=== PATIENT | female | born 1985 | race Caucasian/White ===

== ENCOUNTER 2024-05-06 12:47 | Outpatient (OUT) | payer OTHER, SELFPAY ==
--- NOTE | 2024-05-06 12:52 | US_ITS ---
[place] [id number] Patient Name: KIRSTY MEYERS MRN: [id number] date: 1985 Sex: F Assigned Patient Location: [place] Current Patient Location: [place] Accession/Order Number: [id number] Exam Date: 05/06/2024 13:10 Report Date: 05/06/2024 14:16 At the request of: JOSÉ SINGH Procedure: US OB transvaginal EXAMINATION: US OB transvaginal HISTORY: positive test COMPARISON: No relevant comparison available. FINDINGS: Transvaginal images Espinal intrauterine gestation just Gestational sac: 3.0 cm, 7 weeks 6 days CRL: 1.52 cm, 7 weeks 6 days Yolk sac: 2.5 mm Heart rate: 161 beats minute Adjacent to the gestational sac is a 1.1 x 0.6 x 1.0 cm area of hypoechogenicity Cervix: Closed, 4.9 cm Uterus is normal, retroverted The ovaries are normal. Left corpus luteal cyst. Small amount of left periadnexal free fluid Clinical age: 8 weeks 2 days Clinical RICHA: 12/14/2024 Ultrasound age: 7 weeks 6 days Ultrasound RICHA: 12/17/2024 US/US OB transvaginal IMPRESSION: Viable espinal intrauterine gestation measuring 7 weeks 6 days 1.1 cm subchorionic hematoma Electronically authenticated by: JASS VEGA Date: 05/06/2024 14:16
== END 2024-05-06 12:48 | disposition home or self-care (01) ==
LOC: US 12:47
PROVIDERS: Family Provider Family Medicine; PCP Family Medicine; Visit Provider Midwife
DX: Z32.01 Encounter for pregnancy test, result positive (principal); Z3A.01 Less than 8 weeks gestation of pregnancy
CPT/HCPCS: 76817

== ENCOUNTER 2024-12-15 04:51 | Inpatient (IN) | payer OTHER, SELFPAY ==
--- OUTSIDE RECORDS SUMMARY | 2023-07-17 08:57 | XMS_ITS ---
Author Organization The [facility] in [place] Address [address] [place] [address] Care Team Providers Care Jewel Hole Gauger Name Role Phone Tristen Clemens MD Primary Care Provider Jarrod Tee Unavailable [phone] Medications Medication SIG (Take, Route, Frequency, Duration) Notes Start Date End Date Status Adalimumab-adaz 40 MG/0.4ML 1 pen Subcutaneous every 2 weeks for 28 days 07/17/2023 Active Encounters Encounter Location Date Provider Diagnosis [id number] [facility] [address] [place], [place] [id number] 07/17/2023 Jarrod Godinez Plan Of Treatment Medication Medication Name Sig Start Date Stop Date Notes Humira Pen 40 MG/0.8ML INJECT THE CONTEN TS OF 1 PEN UNDER THE SKIN EVERY OTHER WEEK Pt needs f/u for further rfs Adalimumab-adaz 40 MG/0.4ML 1 pen Subcutaneous every 2 weeks for 28 days 07/17/2023 Next Appt Details Provider Name:Jarrod colin, 03/29/2025 08:45:00 AM, [address], [address], [place], [address], Progress Notes * Nevin YARBROUGH DDOB:1985 (37 yo F)Acc No.[id number]:07/17/2023 Patient: Nevin Godinez :1985 A ge:37 Y S ex:Female Address:[address] [place] [address] [address], [place], [address] * Refills Stop Humira Pen Pen-injector Kit, 40 MG/0.8ML, INJECT THE CONTENTS OF 1 PEN UNDER THE SKIN EVERY OTHER WEEK Start Adalimumab-adaz Solution Auto-injector, 40 MG/0.4ML, Subcutaneous, 2 Pen Needle, 1 pen, every 2 weeks, 28 days, Refills=3 * true * Date: Generated for Dionna powell/Nely/Fionaitting on: 0 12/15/2024 04:54 AM EDT
--- OUTSIDE RECORDS SUMMARY | 2023-12-02 10:13 | XMS_ITS ---
Author Organization The [facility] in [place] Address [address] [place] [address] Care Team Providers Care Spinner Cap Frame Name Role Phone Tristen Clemens MD Primary Care Provider Jarrod Tee Unavailable [phone] REASON FOR VISIT RX REFILL Medications Medication SIG (Take, Route, Fr equency, Duration) Notes Start Date End Date Status Humira Pen 40 MG/0.8ML INJECT THE CONTEN TS OF 1 PEN UNDER THE SKIN EVERY OTHER WEEK Active Encounters Encounter Location Date Provider Diagnosis [id number] [facility] [address] [facility] [place], [place] [id number] 12/02/2023 Jarrod Godinez Plan Of Treatment Medication Medication Name Sig Start Date Stop Date Notes Humira Pen 40 MG/0.8ML INJECT THE CONTEN TS OF 1 PEN UNDER THE SKIN EVERY OTHER WEEK Next Appt Details Provider Name:Jarrod colin, 03/29/2025 08:45:00 AM, [address], [address], [place], [address], Progress Notes * Nevin YARBROUGH DDOB:1985 (38 yo F)Acc No.[id number]:12/02/2023 Patient: Ritesh Nevin VERMA :1985 A ge:38 Y S ex:Female Address:[address] [place] [address] [address], [place], [address] * Refills Refill Humira Pen Pen-injector Kit, 40 MG/0.8ML, 2 Each, INJECT THE CONTENTS OF 1 PEN UNDER THE SKIN EVERY OTHER WEEK, Refills=0 * true * Date: Generated for Dionna powell/Nely/Remy on: 0 12/15/2024 04:55 AM EDT
--- OUTSIDE RECORDS SUMMARY | 2023-12-09 05:45 | XMS_ITS ---
Author Organization The [facility] in [place] Address [address] [place] [address] Care Team Providers Care Mine Deputy Name Role Phone Tristen Clemens MD Primary Care Provider Jarrod Tee Unavailable [phone] REASON FOR VISIT Med Check, joint pain Medications Medication SIG (Take, Route, Frequency, Duration) Notes Start Date End Date Status Drospirenone-Estradiol 0.5-1 MG 1 tablet Orally Once a day Active Adalimumab-adaz 40 MG/0.4ML 1 pen Subcutaneous every 2 weeks for 28 days 07/17/2023 Not-Taking Humira Pen 40 MG/0.8ML INJECT THE CONTEN TS OF 1 PEN UNDER THE SKIN EVERY OTHER WEEK Active Flonase Allergy Relief 50 MCG/ACT 1 spray in each nostril Nasally Once a day for 30 day(s) Active Semaglutide 1.8 mg/ 0.5 mL 1.8 mg/ 0.5 mL 0.5 mL Subcutaneous Once Weekly Active Social History Tobacco Use: Social History Observation Description Date Details (start date - stop date) Never Smoker NA - NA Tobacco Use/Smoking Question Answer Notes Patient is a nonsmoker 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[employer], 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 Vital Signs Blood pressure systolic 122 mm Hg 12/09/19 24 Blood pressure diastolic 90 mm Hg 024 Heart Rate 80 /min 12/09/2023 Height 56 in 12/09/2023 Weight 179 lbs 12/09/2023 BMI 40.13 kg/m2 12/09/2023 Encounters Encounter Location Date Provider Diagnosis [id number] [facility] [address] [facility] [address] [place], [place] [id number] 12/09/2023 Jarrod Godinez Rheumatoid arthritis of multiple sites without organ or system involvement with positive rheumatoid factor M05.79 ; Flat foot [pes planus] (acquired), left foot M21.42 ; Flat foot [pes planus] (acquired), right foot M21.41 and Other snf (current) drug therapy Z79.899 Assessments Encounter Date Diagnosis (ICD Code) Assessment Notes Treatment Notes Treatment Clinical Notes Section Notes 12/09/2023 Rheumatoid arthritis of multiple sites without organ or system involvement with positive rheumatoid factor (ICD-10 - M05.79) Rheumatoid arthritis improved during did flare when she stopped breast-feeding which she is a fairly common scenario as hormone levels fluctuate. Over the last year she has been taking a rather minimal amount of Humira, it is not even clear to me whether she is having true flareups or the hip and knee problems she is having are more mechanical. I suggested if she feels she needs 1 around the time of the wedding okay to take but then see if she can get by without the medication and then we will see if she needs to be on some regular use of a biologic response modifier still. I will see her back in 6 months. 12/09/2023 Flat foot [pes planus] (acquired), left foot (ICD-10 - M21.42) Rheumatoid arthritis improved during did flare when she stopped breast-feeding which she is a fairly common scenario as hormone levels fluctuate. Over the last year she has been taking a rather minimal amount of Humira, it is not even clear to me whether she is having true flareups or the hip and knee problems she is having are more mechanical. I suggested if she feels she needs 1 around the time of the wedding okay to take but then see if she can get by without the medication and then we will see if she needs to be on some regular use of a biologic response modifier still. I will see her back in 6 months. 12/09/2023 Flat foot [pes planus] (acquired), right foot (ICD-10 - M21.41) Rheumatoid arthritis improved during did flare when she stopped breast-feeding which she is a fairly common scenario as hormone levels fluctuate. Over the last year she has been taking a rather minimal amount of Humira, it is not even clear to me whether she is having true flareups or the hip and knee problems she is having are more mechanical. I suggested if she feels she needs 1 around the time of the wedding okay to take but then see if she can get by without the medication and then we will see if she needs to be on some regular use of a biologic response modifier still. I will see her back in 6 months. 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 Over the last year she has been taking a rather minimal amount of Humira, it is not even clear to me whether she is having true flareups or the hip and knee problems she is having are more mechanical. I suggested if she feels she needs 1 around the time of the wedding okay to take but then see if she can get by without the medication and then we will see if she needs to be on some regular use of a biologic response modifier still. I will see her back in 6 months. Plan Of Treatment Next Appt Details Follow Up: 6 Months, Reason: Provider Name:Jarrod Joseph dixie, 03/29/2025 08:45:00 AM, [address], [facility], [place], [address], Progress Notes * Nevin YARBROUGH DDOB:1985 (38 yo F)Acc No.[id number]:12/09/2023 Follow Up Patient: Nevin BOWERS D Provider: Kirstin Godinez MD :1985 A ge:38 Y S ex:Female Date:12/09/2023 Address:[address] [place], [place] [id number] Pcp:Tristen Clemesn MD Check In:09:43 AM ESTCheck O ut:10:12 AM EST Subjective: * Chief Complaints: * M ed CheckJoint pain * HPI: R heumatology: Nevin returns for reevaluation. She has seropositive and CCP positive rheumatoid arthritis. I saw her by televisit 1 year a go. Patient is taking Humira every couple of months when she feels she needs it. She reports mild recurrent right knee pain when she is exercising. She notes exacerbation of left sided groin pain when sleeping on the left side. She is not entirely sure if the joints feel that much better after an injection but she did want to take 1 recently because her sister's wedding is coming up and she wanted to make sure she would not experience a flare. She has lost about 40 pounds on Qsymia. N o other peripheral joints recently acutely swollen, red, hot, or otherwise inflamed. She denies prolonged morning stiffness or significant fatigue. The patient has had no eye inflammation, pulmonary symptoms, leg ulcers, recurrent infections or other extra-articular manifestations of rheumatoid arthritis. She denies any recent medical problems. She last had lab work about a year ago for health screening and nothing was remarkable. She has been back to work currently working at a [employer]. 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 W eight loss d enies. F atigue or Weakness d enies. P oor appetite d enies. F ever or Chills d enies. N ap during the day d enies. S kin: Easy Bruising d enies. R edness d enies. R craig?denies. H marcin a dmits-less severe, takes Zantac and Zyrtec as needed. S un sensitive (sun allergy) d enies. T ightness d enies. H air loss d enies. C olor changes of hands or feet in the cold or when upset d enies. S ores/ulcerations on finger tips d enies. R craig on palms/soles d enies. E yes: Pain d enies. R edness d enies. L oss of vision?denies. D ouble or blurred vision d enies. F eels like something in eye d enies. N ose: Nosebleeds d enies. L oss of smell d enies. ? N sofi: Jaw pain with chewing d enies. S wollen glands d enies. T jerman glands d enies. H eart and Lungs: Pain in chest d enies. I rregular heartbeat d enies. S udden changes in heartbeat d enies. S hortness of breath d enies. D ifficulty in breathing at night d enies. S wollen legs or feet d enies. F requent cough d enies. C oughing of blood d enies. W heezing d enies. N ight sweats d enies. S tomach and Intestines: Nausea d enies. V omitting of blood or coffee ground material d enies. S tomach pain relieved by food or milk d enies. Y ellow jaundice?denies. I ncreasing constipation d enies. P ersistent diarrhea d enies. B lood in stools d enies. B lack stools d enies. F requent or constant heartburn d enies. M outh: Sore tongue d enies. B leeding gums d enies. S ores in mouth d enies. L oss of taste d enies. T hroat: Frequent sore throats d enies. H oarseness d enies.?Difficulty in swallowing d enies. N ervous System: Headaches d enies. D izziness d enies. F ainting d enies. M uscle spasm d enies. L oss of consciousness d enies. S ensitivity or pain of hands and/or feet d enies. M jefferson loss d enies. A clementine or legs tingle/numb d enies. T enderness of the scalp d enies. K idney/Urine/Bladder: Difficult urination d enies. P ain or burning on urination d enies. B lood in urine d enies. C loudy, smoky urine d enies. P us in urine d enies. D ischarge from penis/vagina d enies. F requent urination d enies. G etting up at night to pass urine d enies. V aginal dryness d enies. S exual difficulties d enies. M uscles/Joints/Bones: Comments a s per HPI. * Active Problem List M05.79 Rheumatoid arthritis of multiple sites without organ or system involvement with positive rheumatoid factor Modified On:11/06/2022W/U Status:confirmed * Medical History: * Surgical History: H istory of periodontal surgery History of tonsillectomy * Hospitalization/Major Diagno stic Procedure: N o Hospitalization History. * Family History: F ather: alive, ;. M other: alive, ;. 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 * Medications: T akingDrospirenone-Estradiol 0.5-1 MG Tablet 1 tablet Orally Once a day Flonase Allergy Relief(Fluticasone Propionate) 50 MCG/ACT Suspension 1 spray in each nostril Nasally Once a day Humira Pen(Adalimumab) 40 MG/0.8ML Pen-injector Kit INJECT THE CONTENTS OF 1 PEN UNDER THE SKIN EVERY OTHER WEEK Semaglutide 1.8 mg/ 0.5 mL 1.8 mg/ 0.5 mL Solution Auto-injector 0.5 mL Subcutaneous Once Weekly Taking Drospirenone-Estradiol 0.5-1 MG Tablet 1 tablet Orally Once a day Taking Flonase Allergy Relief(Fluticasone Propionate) 50 MCG/ACT Suspension 1 spray in each nostril Nasally Once a day Taking Humira Pen(Adalimumab) 40 MG/0.8ML Pen-injector Kit INJECT THE CONTENTS OF 1 PEN UNDER THE SKIN EVERY OTHER WEEK Taking Semaglutide 1.8 mg/ 0.5 mL 1.8 mg/ 0.5 mL Solution Auto-injector 0.5 mL Subcutaneous Once Weekly Not-Taking/PRNAdalimumab-adaz 40 MG/0.4ML Solution Auto-injector 1 pen Subcutaneous every 2 weeks Not-Taking/PRN Adalimumab-adaz 40 MG/0.4ML Solution Auto-injector 1 pen Subcutaneous every 2 weeks DiscontinuedQsymia(Phentermine-Topiramate) 7.5-46 MG Capsule Extended Release 24 Hour 1 capsule Orally Once a day Medication List reviewed and reconciled with the patientDiscontinued Qsymia(Phentermine-Topiramate) 7.5- 46 MG Capsule Extended Release 24 Hour 1 capsule Orally Once a day Medication List reviewed and reconciled with the patient * Allergies: n o[Allergies Verified] Objective: * Vitals: W t:179lbs, Ht: 56 in, BP:122/90mm Hg, HR:80/min, BMI:40.13Index, Ht-cm: 142.24 cm, Wt-k.19 kg. * Examination: G eneral: N o current urticaria. No scleritis. No oral lesions, lungs clear. No tophi or nodules. There is no hand synovitis or deformity. Slight hypertrophy right 3rd DIP. 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 Other peripheral joints on comprehensive joint exam demonstrate full pain free motion without pain on motion, synovitis or deformity. No current knee effusions. Mild crepitus on RT knee motion. There are no palpable effusions. Mild positive Elpidio's sign Left hip with full range of motion. There is no metatarsal squeeze tenderness. There is reasonably full pain-free cervical and lumbar spine motion for the patient's age without local tenderness. Gait is normal. Assessment: * Assessment: 1. R heumatoid arthritis of multiple sites without organ or system involvement with positive rheumatoid factor - M05.79 (Primary) 2 . F lat foot [pes planus] (acquired), left foot - M21.42 3 . F lat foot [pes planus] (acquired), right foot - M21.41 4 . O ther snf (current) drug therapy - Z79.899 Rheumatoid arthritis improve d during did flare when she stopped breast-feeding which she is a fairly common scenario as hormone levels fluctuate. Over the last year she has been taking a rather minimal amount of Humira, it is not even clear to me whether she is having true flareups or the hip and knee problems she is having are more mechanical. I suggested if she feels she needs 1 around the time of the wedding okay to take but then see if she can get by without the medication and then we will see if she needs to be on some regular use of a biologic response modifier still. I will see her back in 6 months. Plan: * Treatment: * Procedure Codes: * Preventive Medicine: Screenings/Counseling: B [place] ACTION PLAN Above Normal BMI Follow-up D ietary management education, guidance, and counseling * Disposition & Communication: Romain alas Attestation: The documentation for this encounter was entered by Ansley Marx acting as scribe for Jarrod Godinez M.D. ([facility]). The documentation recorded by the scribe accurately reflects the service I personally performed and the decisions made by me. I have reviewed and confirmed the accuracy of the documentation. By electronically signing this patient's record, I attest and assume full responsibility of all entries made into the electronic medical record by Ansley Marx. * Follow Up: 6 Months * * Sign off status: Completed Visit Status: C HK (Check Out) true * Provider: Kirstin Godinez MD Date: 0 12/09/2023 Generated for Ruperti sherry/Nely/eTransmitting on: 0 12/15/2024 04:55 AM EDT History and Physical Notes * HPI (History of Present Illness) Category Sub-Category Detail Notes Category Not es Rheumatology Screenings JIMBO Disability Index Score:: 0 PAS Score:: 0 RAPID 3 Score:: 0.3 WPI Score:: 0 SS Score:: 0 BASDAI Score:: 0 SLEDAI Score:: 0 Examination Category Sub-Category Detail Notes Category Not es General No current urti caria. No scleritis. No oral lesions, lungs clear. No tophi or nodules. There is no hand synovitis or deformity. Slight hypertrophy right 3rd DIP. 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 Other peripheral joints on comprehensive joint exam demonstrate full pain free motion without pain on motion, synovitis or deformity. No current knee effusions. Mild crepitus on RT knee motion. There are no palpable effusions. Mild positive Elpidio's sign Left hip with full range of motion. There is no metatarsal squeeze tenderness. There is reasonably full pain-free cervical and lumbar spine motion for the patient's age without local tenderness. Gait is normal
--- OUTSIDE RECORDS SUMMARY | 2024-02-17 06:30 | XMS_ITS | Continuity of Care Document ---
Author Organization [facility] Address [address] [facility] [place] [address] Phone Care Team Providers Care Protection Officer Name Role Phone Tony VARGAS, Afser Unavailable Unavailable Allergies, Adverse Reactions, Alerts Substance Reaction Status Criticality No Known Allergies Active No Inform ation Medications Medication Instructions Dosage Effective Dates (start - stop) Status Comments Sprintec (28) 0.25 mg-35 mcg tablet take 1 tablet by oral route every day 1.00 tablet - Active albuterol sulfate 0.63 mg/3 mL solution for nebulization - Active Flonase Allergy Relief 50 mcg/actuation nasal spray,suspension spray 1 - 2 spray by intranasal route every day in each nostril as needed 50-100 MCG - Active Humira 40 mg/0.8 mL subcutaneous syringe kit inject 0.8 milliliter by subcutaneous route 2 times every week 40 MG - Active Procedures Procedure Date OFFICE/OUTPATIENT VISIT, NEW OFFICE/OUTPATIENT VISIT, EST OFFICE/OUTPATIENT VISIT, NEW TB INTRADERMAL TEST TB INTRADERMAL TEST TB INTRADERMAL TEST IMMUNIZATION ADMIN TDAP VACCINE >7 IM PREV VISIT, NEW, AGE 18-39 REMOVE DRUG IMPLANT DEVICE INSERT DRUG IMPLANT DEVICE URINE TEST NEXPLANON IMPLANT SYSTEM OFFICE/OUTPATIENT VISIT, [facility] Advance Directives Directive Yes / No Effective Date File Name No Information Encounters Encounter Description Practice Location Reason(s) For Visit Diagnoses Date Provider Providers Copied on Encounter OFFICE/OUTPA TIENT VISIT, [facility] [employer] [facility], [address] [place] [address] [address], [place], [place], [id number] , [place] tel:[phone] [facility] Ear pain (chief complaint) Otalgia, left earPerforation of left tympanic membraneOther abnormal auditory perceptions, bilateral Feb- 4 Tony Morales. [address], [place], [place], [id number], [place]. tel:[phone] Referring Provider: Andrew Jimenez MD, [address], [place], [address] . tel:[phone] OFFICE/OUTPA TIENT VISIT, [facility] [employer] [facility], [address] [place] [address] [address], [place], [place], [id number] , [place] tel:[phone] [facility] Follow Up of ear pain (chief complaint) Left acute suppurative otitis mediaConductive hearing loss of left ear with unrestricted hearing of right earOtalgia, left earOther abnormal auditory perceptions, left earAllergic rhinitis, unspecified seasonality, unspecified trigger 1 Bernardino Menchaca. [address], [place], [address], [place]. tel:[phone] Referring Provider: Nikolai Lebron MD, [address], [place], [address]. tel:[phone] OFFICE/OUTPA TIENT VISIT, [employer] [place] [employer] [facility], [address] [place] [address] [address], [place], [place], [id number] , [place] [phone] [facility] Ear pain (chief complaint) Left acute suppurative otitis mediaOtalgia, left earConductive hearing loss of left ear with unrestricted hearing of right earOther abnormal auditory perceptions, left earDeviated nasal septumAllergic rhinitis, unspecified seasonality, unspecified triggerNasal congestion 1 Bernardino Menchaca. [address] [facility] [address], [place], [address], [place]. tel:[phone] Referring Provider: Nikolai Lebron MD, [address] [facility] [address], [place], [address]. tel:[phone] [facility], [address] [place] [address] [address], [place], [place], [id number] , [place] tel: [phone] [facility] PPD Placement (chief complaint) Encounter for screening for respiratory tuberculosis 0 [facility], [address] [place] [address] [address], [place], [place], [id number] , [place] tel: [phone] [facility] tuberculin skin test (chief complaint) Encounter for screening for respiratory tuberculosis 9 [facility], [address] [place] [address] [address], [place], [place], [id number] , [place] tel: [phone] [facility] PPD #1 (chief complaint) Encounter for screening for respiratory tuberculosis 9 [facility], [address] [place] [address] [address], [place], [place], [id number] , [place] tel: [phone] [facility] Chronic urticaria 8 Asuncion Merchant. [address] [place] [address], [place], [place], [id number], [place]. [phone] PREV VISIT, NEW, AGE 18-39 [facility], [address] [place] [address] [address], [place], [place], [address] , [place] tel: [phone] [facility] establish care (chief complaint)p reventive exam (chief complaint)r heumatoid arthritis (chief complaint)h marcin (chief complaint) Encounter for general adult medical examination with abnormal findingsHivesRh eumatoid arthritis involving multiple sites, unspecified rheumatoid factor presenceSurveil scott for control, oral contraceptivesE ncounter to establish care with new doctor 8 Asuncion Merchant. [address] [facility] [address], [place], [place], [id number], [place]. [phone] Referring Provider: Mayur Roland APRN [employer]ENSATOR[employer], [address], [place], [address] . tel:[phone] [facility], [address], [place], [place], [address] , [place] tel:[phone] [facility] No Information [address] Sar[address], [place], [place], [address], [place]. [phone] Referring Provider: Meeta Gong, [address], [place], [address] . tel:[phone] [facility], [address] [facility] [address], [place], [place], [address] , [place] tel:[phone] [facility] No Information [address] Sar[address], [place], [place], [address], [place]. [phone] Referring Provider: Meeta Gong, [address], [place], [address] . tel:[phone] OFFICE/OUTPA TIENT VISIT, [facility], [address] [facility] [address], [place], [place], [address] , [place] tel:[phone] [facility] No Information [address] Sar[address], [place], [place], [id number], [place]. [phone] Referring Provider: Meeta Gong, [address], [place], [address] . tel:[phone] Family History Family Member Type Diagnosis Age At Onset Maternal grandmother Problem (finding) Heart issues Paternal grandmother Problem (finding) breast cancer Mother Problem (finding) Colitis Mother Problem (finding) Rheumatoid arthritis Mother Problem (finding) hypertension Maternal grandfather Problem (finding) Diabetes mellit us Immunizations Vaccine Date Status Comments Tdap (Adacel) administered Note: Patient tolerated well. ; Source: New Immunization Record Payers Payer name Insurance type Covered constitution party ID Mary quinteros(s) [facility] CI [id number] [employer] [id number] Social History Type Description Quantity Date Captured Comments Alcohol Use Details wine Caffeine Use Details coffee Tobacco Use Status Current non-smoker Smoking Status Never smoker Sex Female Vital Signs Date / Time: Height Weight BMI Pulse Rate Blood Pressure Temperature Respiratory Rate Body Surface Area Head Circumference Head Circ. Percentile Wt./Paramjit. Percentile BMI percentile Pulse Ox Inhaled Ox 10:50 AM 66.00 in 92.986 kg (205.00 lbs) 33.0 9 kg/m eter (2) 81 /min 128/91 mm[Hg] Chief Complaint And Reason For Visit From encounter dated 02/17/2024 10:30'. Ear pain (chief complaint). Description: Onset: 3 months ago. The patient states the ear pain is inthe left ear. Pertinent negatives include bleeding from ear(s), drainage (clear), fever and ringingin ears. Reason For Referral Reason For Referral No Information Plan Of Treatment Date Type Action Status Goal DEXA scan. Due on due Goal BRIDGE RIGGER/Breast exam. Due on due Goal Influenza vaccin e. Due on due Goal HPV, high+low-ri sk. Due on due Goal Pap/HPV testing. Due on due Goal HPV. Due on due Goal Glucose. Due on due Goal Diabetes Screeni ng. Due on due Goal Cytology report of Cervical and vaginal smear or scraping Cyto stain. Due on due Goal Hepatitis C scre ening. Due on due Goal URINALYSIS NONAU TO W/O SCOPE. Due on due Goal Depression scree luis manuel. Due on due Goal Unhealthy drug u se screening. Due on due Goal DEXA scan. Due on due Goal BRIDGE RIGGER/Breast exam. Due on due Goal Influenza vaccin e. Due on due Goal Diabetes Screeni ng. Due on due Goal Cytology report of Cervical and vaginal smear or scraping Cyto stain. Due on due Goal HPV, high+low-ri sk. Due on due Goal Pap/HPV testing. Due on due Goal Glucose. Due on due Goal HPV. Due on due Goal URINALYSIS NONAU TO W/O SCOPE. Due on due Goal Depression scree luis manuel. Due on due Goal Glucose. Due on due Goal Pap/HPV testing. Due on due Goal HPV, high+low-ri sk. Due on due Goal HPV. Due on due Goal Depression scree luis manuel. Due on due Goal URINALYSIS NONAU TO W/O SCOPE. Due on due Goal Cytology report of Cervical and vaginal smear or scraping Cyto stain. Due on due Goal Diabetes Screeni ng. Due on due Goal Influenza vaccin e. Due on due Goal BRIDGE RIGGER/Breast exam. Due on due Goal DEXA scan. Due on due Goal BRIDGE RIGGER/Breast exam. Due on due Goal Influenza vaccin e. Due on due Goal Diabetes Screeni ng. Due on due Goal HPV, high+low-ri sk. Due on due Goal Cytology report of Cervical and vaginal smear or scraping Cyto stain. Due on due Goal Pap/HPV testing. Due on due Goal Glucose. Due on due Goal URINALYSIS NONAU TO W/O SCOPE. Due on due Goal Depression scree luis manuel. Due on due Goal EKG. Due on due Goal BRIDGE RIGGER/Breast exam. Due on due Goal Influenza vaccin e. Due on due Goal HPV, high+low-ri sk. Due on due Goal Cytology report of Cervical and vaginal smear or scraping Cyto stain. Due on due Goal Glucose. Due on due Goal Pap/HPV testing. Due on due Goal URINALYSIS NONAU TO W/O SCOPE. Due on due Goal Depression scree luis manuel. Due on due Goal EKG. Due on due Goal BRIDGE RIGGER/Breast exam. Due on due Goal Influenza vaccin e. Due on due Goal Pap/HPV testing. Due on due Goal Glucose. Due on due Goal Cytology report of Cervical and vaginal smear or scraping Cyto stain. Due on due Goal HPV, high+low-ri sk. Due on due Goal URINALYSIS NONAU TO W/O SCOPE. Due on due Goal Depression scree luis manuel. Due on due Goal EKG. Due on due Goal BRIDGE RIGGER/Breast exam. Due on due Goal HPV, high+low-ri sk. Due on due Goal Cytology report of Cervical and vaginal smear or scraping Cyto stain. Due on due Goal Glucose. Due on due Goal Pap/HPV testing. Due on due Goal URINALYSIS NONAU TO W/O SCOPE. Due on due Goal Depression scree luis manuel. Due on due Goal Influenza vaccin e. Due on due Goal Depression scree luis manuel. Due on due Goal URINALYSIS NONAU TO W/O SCOPE. Due on due Goal Pap/HPV testing. Due on due Goal Glucose. Due on due Goal Cytology report of Cervical and vaginal smear or scraping Cyto stain. Due on due Goal HPV, high+low-ri sk. Due on due Goal Tdap. Due on due Goal Influenza vaccin e. Due on due Goal BRIDGE RIGGER/Breast exam. Due on due Goal EKG. Due on due Referral Ordered: Jimmie Loza -Allergy and Immunology (related to Chronic urticaria) ordered Referral Referred To: Jimmie Loza [address] [place], [phone] Ordered: Referrals: Allergy and Immunology. Jimmie Loza. Evaluate and treat ordered Referral Ordered: Ronna Ray -Allergy and Immunology (related to Hives) ordered Referral Ordered: Ronna Ray -Allergy and Immunology (related to Hives) ordered Referral Referred To: Ronna Ray [address] [facility] [address] [place], [phone] Ordered: Referrals: Allergy and Immunology. Ronna Ray. Evaluate and treat ordered Referral Referred To: Ronna Ray [address] [facility] [address] [place], [phone] Ordered: Referrals: Allergy and Immunology. Ronna Ray. Consult ordered Future Order: Radiology Order Au diogram (AUDIO), Ordered on: Ordered Future Order: Radiology Order Ty mpanogram (TYM), Ordered on: Ordered History Of Present Illness Encounter Date Complaint History Of Prese nt Illness Ear pain Onset: 3 months ago. The patient states the ear pain is in the left ear. Pertinent negatives include bleeding from ear(s), drainage (clear), fever and ringing in ears. Follow Up of ear pain Follow Up of ear pain (comments) Comments: Signs/symptoms of left acute suppurative otitis have resolved with time, left ear water avoidance, continuation Flonase, initiation Claritin, Ciprodex, Cleocin. Mrs. Yarbrough denies eustachian tube dysfunction symptoms. Past therapy included Augmentin, Levaquin. She describes disease onset following peroxide/baby shampoo irrigations for impacted hair follicle. She also describes subsequent development upper respiratory tract type infection. She denies otitis history as an adult. She does admit to bilateral ventilatory ear tube placement in childhood. Medical history is significant for inhalant allergies requiring occasional Claritin, daily Flonase. She is without new complaints and appeared pleased with her progress. Ear pain (comments) Comments: 34 -year-old presents with a 16 day history of left otalgia, otorrhea, decreased hearing. Mrs. Yarbrough describes disease onset following peroxide/baby shampoo irrigation for impacted hair follicle. She denies history of otitis as an adult. She does admit to bilateral ventilatory ear tube placement in childhood. Disease has persisted despite Augmentin, Levaquin. She also describes recent onset/5 days upper respiratory track type infection. She does admit to inhalant allergies requiring occasional Claritin, daily Flonase. She denies topical therapy. Ear pain PPD Placement Pt is here for P PD placement. Temperature WNL. See dosing and administration for details. tuberculin skin test Here for 2n d TB skin testing. Patient states they feel well today temperature within normal range. Patient is aware that they will have to return within 48 hours for reading. Patient denies any exposure to any at risk population or travel to any at risk countries. See details for dosing and administration. PPD #1 Here for TB skin testing. Patient states they feel well today temperature within normal range. Patient is aware that they will have to return within 48 hours for a reading. Patient denies any exposure to any at risk population or travel to at risk countries. See details for dosing and administration. establish care Nevin is a 31 ye ar old female who is new to our office and is here to establish care. She is a new employee to [employer] and is in need for her employee wellness as well as her women's exam. She is and has no children. preventive exam Currently pregna nt: no. Patient is not contemplating . The patient states she uses oral contraceptive for control. Last LMP was 05/18/2017. Her menses is regular with normal flow with a frequency of every 28 days. Negative for dysmenorrhea and menorrhagia. Negative for: breast discharge, breast lump(s) and breast pain. Positive for: breast self exam. Additional information: This is a well woman exam with PAP. The patient has history of an abnormal PAP several years ago but has had normal PAPs since then.. hives Location is arm and thigh. The problem is with no change. Relieving factors include antihistamines. Associated factors include urticaria. Pertinent negatives include diarrhea, fatigue, headache and vomiting. Comments: Pt has chronic hives. She has been to dermatology and they could not figure out cause. She currently takes Zantac and Zyrtec and this keep hives under decent control.. hives (comments) Pt states she g ets hives on arms and thighs. Hives seem worse in the morning when she wakes up. She was told by dermatology she would need referral to project management analyst for allergy testing rheumatoid arthritis She is expe riencing joint swelling. Pertinent negatives include abdominal pain, fatigue and headache. Additional information: Pt was diagnosed with RA 3-4 years ago[address] She sees Dr. Godinez every 4-6 months. She is currently on Humira and this is working well for her. She will get pain in her hands and knees. preventive exam (comments) . LMP was 05-18-2017 and she states she has regular every month. Her last PAP was a couple years ago. She did have abnormal PAP years ago but last couple have been normal. She is sexually active with her . She denies any concerns for STIs, any abnormal bleeding or discharge. She is on oral BCP for past 8 months and she is doing well on it. Pt states she has recent blood work done for wellness at hospital and she will send here. establish care (comments) Pt has history of RA and chronic hives. She denies any history of HTN, asthma, DM , or cancer. She does not smoke, drinks occasionally, and denies illegal drug use. 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 She is UTD on eye and dental exam. She is UTD on immunizations except for Tetanus shot and she will like to have this today. Functional Status Date Functional Assessmen t No Information Instructions Date Instruction Additional Infor evaristo Avoid self instrumen tation auditory canals.Water avoidance is no longer required in regards to the left ear.Hearing protection when exposed to any noise equal to or louder than a standard office equipment mechanic. Related to Allergic rhinitis, unspecified seasonality, unspecified trigger Avoid self instrumen tation auditory canals.Hearing protection when exposed to any noise equal to or louder than a standard office equipment mechanic. Contact the office with any GI concerns thought related to Cleocin use. Related to Deviated nasal septum Pt to continue Zyrte c and Zantac, refill sent in. Will refer pt to project management analyst for evaluation. Related to Hives Pt to continue follo wing up with Dr. Godinez. Related to Rheumatoid arthritis involving multiple sites, unspecified rheumatoid factor presence Pt to continue on cu rrent oral BCP, she does not need refill. Related to Surveillance for control, oral contraceptives PAP obtained and gerald l treat based on results. Pt will have blood work sent to in to review. She will follow up in one year or sooner if needed. Related to Encounter for general adult medical examination with abnormal findings Assessments Type Assessment Date assessment Otalgia, left ear assessment Perforation of left tympanic mem brane assessment Other abnormal auditory percepti ons, bilateral Mental Status Date Cognitive Assessment Orientation - [place] ed to time, place, person, situation. Patient Care Teams Name Effective Dates (start - stop) Status Members No Information
--- OUTSIDE RECORDS SUMMARY | 2024-02-18 11:54 | XMS_ITS ---
Author Organization [facility] [place] Address [address] [place] [address] Care Team Providers [place] Records Management Officer Name Role Phone Tristen Clemens MD Primary Care Provider Jarrod Tee Unavailable [phone] REASON FOR VISIT Letter for terminal carman disability eligibility Encounters Encounter Location Date Provider Diagnosis [id number] [facility] [address] [place], [place] [id number] 02/18/2024 Jarrod Godinez Plan Of Treatment Next Appt Details Provider Name:Jarrod colin, 03/29/2025 08:45:00 AM, [address], [facility], [place], [address], Progress Notes * Nevin YARBROUGH DDOB:1985 (38 yo F)Acc No.[id number]:02/18/2024 Patient: Nevin BOWERS :1985 A ge:38 Y S ex:Female Address:[address] [place] [address] [address], [place], [address] * true * Date: Generated for Printi ng/Faxing/eTransmitting on: 0 12/15/2024 04:55 AM EDT
--- OUTSIDE RECORDS SUMMARY | 2024-06-22 05:45 | XMS_ITS ---
Author Organization [facility] in [place] Address [address] [place] [address] Care Team Providers Care Rotary Soil Stabilizer Name Role Phone Tristen Clemens MD Primary Care Provider Jarrod Tee Unavailable [phone] REASON FOR VISIT 6 month f/u, joint pain Medications Medication SIG (Take, Route, Frequency, Duration) Notes Start Date End Date Status Adalimumab-adaz 40 MG/0.4ML 1 pen Subcutaneous every 2 weeks for 28 days 07/17/2023 Active Flonase Allergy Relief 50 MCG/ACT 1 spray in each nostril Nasally Once a day for 30 day(s) Active Humira Pen 40 MG/0.8ML INJECT THE CONTEN TS OF 1 PEN UNDER THE SKIN EVERY OTHER WEEK Active Social History Tobacco Use: Social History Observation Description Date Details (start date - stop date) Never Smoker NA - NA Tobacco Use/Smoking Question Answer Notes Patient is a nonsmoker 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[employer], 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 Vital Signs Blood pressure systolic 122 mm Hg 06/23/19 25 Blood pressure diastolic 92 mm Hg 025 Heart Rate 90 /min 06/22/2024 Height 56 in 06/22/2024 Weight 209 lbs 06/22/2024 BMI 46.85 kg/m2 06/22/2024 Encounters Encounter Location Date Provider Diagnosis [facility] Rheumatology [address] [place] [address] 06/22/2024 Jarrod Godinez Rheumatoid arthritis of multiple sites without organ or system involvement with positive rheumatoid factor M05.79 ; Flat foot [pes planus] (acquired), left foot M21.42 ; Flat foot [pes planus] (acquired), right foot M21.41 and Other roasterman (current) drug therapy Z79.899 Assessments Encounter Date Diagnosis (ICD Code) Assessment Notes Treatment Notes Treatment Clinical Notes Section Notes 06/22/2024 Rheumatoid arthritis of multiple sites without organ or system involvement with positive rheumatoid factor (ICD-10 - M05.79) Rheumatoid arthritis which has been minimally symptomatic for the past few years and improved during previously is a little more symptomatic because of enforced inactivity but is back to taking a rather minimal amount of Humira which does seem to be helping. Under the circumstances I think it is fine to continue to do this. She did have some screening labs by her energy manager which were apparently unremarkable. So I will just observe on the current treatment and plan to see her back in about 9 months after the baby is born unless necessary sooner. 06/22/2024 Flat foot [pes planus] (acquired), left foot (ICD-10 - M21.42) Rheumatoid arthritis which has been minimally symptomatic for the past few years and improved during previously is a little more symptomatic because of enforced inactivity but is back to taking a rather minimal amount of Humira which does seem to be helping. Under the circumstances I think it is fine to continue to do this. She did have some screening labs by her energy manager which were apparently unremarkable. So I will just observe on the current treatment and plan to see her back in about 9 months after the baby is born unless necessary sooner. 06/22/2024 Flat foot [pes planus] (acquired), right foot (ICD-10 - M21.41) Rheumatoid arthritis which has been minimally symptomatic for the past few years and improved during previously is a little more symptomatic because of enforced inactivity but is back to taking a rather minimal amount of Humira which does seem to be helping. Under the circumstances I think it is fine to continue to do this. She did have some screening labs by her energy manager which were apparently unremarkable. So I will just observe on the current treatment and plan to see her back in about 9 months after the baby is born unless necessary sooner. 06/22/2024 Other roasterman (current) drug therapy (ICD-10 - Z79.899) Rheumatoid arthritis which has been minimally symptomatic for the past few years and improved during previously is a little more symptomatic because of enforced inactivity but is back to taking a rather minimal amount of Humira which does seem to be helping. Under the circumstances I think it is fine to continue to do this. She did have some screening labs by her energy manager which were apparently unremarkable. So I will just observe on the current treatment and plan to see her back in about 9 months after the baby is born unless necessary sooner. Plan Of Treatment Medication Medication Name Sig Start Date Stop Date Notes Adalimumab-adaz 40 MG/0.4ML 1 pen Subcut aneous every 2 weeks for 28 days 07/17/2023 Next Appt Details Follow Up: 9 Months, last la bs from [facility], Reason: Provider Name:Johnjihan Mcgrawann colin, 03/29/2025 08:45:00 AM, [address], [address], [place], [address], Progress Notes * Nevin YARBROUGH DDOB:1985 (38 yo F)Acc No.[id number]:06/22/2024 Follow Up Patient: Ritesh VERMA Nevin Rain Provider: Kirstin Godinez MD :1985 A ge:38 Y S ex:Female Date:06/22/2024 Address:[address] [place] [address] Pcp:Tristen Clemens MD Check In:09:33 AM ESTCheck O ut:10:11 AM EST Subjective: * Chief Complaints: * 6 month f/uJoint pain * HPI: R heumatology: Nevin returns for reevaluation. She has seropositive and CCP positive rheumatoid arthritis. I saw her last six months ago. She is currently 15 weeks . She reports having gone about 3 months without needing a Humira dose, but has since taken one recently due to joint pain. She attributes her joint pain to her lack of exercise. She was directed to stop exercising due to a hematoma adjacent to the amniotic sac found on her last ultrasound. Patient is stable otherwise and has no significant complaints today. No peripheral joints recently acutely swollen, red, hot, or otherwise inflamed. She denies prolonged morning stiffness or significant fatigue. The patient has had no eye inflammation, pulmonary symptoms, leg ulcers, recurrent infections or other extra-articular manifestations of rheumatoid arthritis. She has been back to work currently working at a [employer]. 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 * Medications: T akingFlonase Allergy Relief(Fluticasone Propionate) 50 MCG/ACT Suspension 1 spray in each nostril Nasally Once a day Humira Pen(Adalimumab) 40 MG/0.8ML Pen-injector Kit INJECT THE CONTENTS OF 1 PEN UNDER THE SKIN EVERY OTHER WEEK Taking Flonase Allergy Relief(Fluticasone Propionate) 50 MCG/ACT Suspension 1 spray in each nostril Nasally Once a day Taking Humira Pen(Adalimumab) 40 MG/0.8ML Pen-injector Kit INJECT THE CONTENTS OF 1 PEN UNDER THE SKIN EVERY OTHER WEEK Not-Taking/PRNAdalimumab-adaz 40 MG/0.4ML Solution Auto-injector 1 pen Subcutaneous every 2 weeks Not-Taking/PRN Adalimumab-adaz 40 MG/0.4ML Solution Auto-injector 1 pen Subcutaneous every 2 weeks DiscontinuedDrospirenone-Estradiol 0.5-1 MG Tablet 1 tablet Orally Once a day Semaglutide 1.8 mg/ 0.5 mL 1.8 mg/ 0.5 mL Solution Auto-injector 0.5 mL Subcutaneous Once Weekly Discontinued Drospirenone-Estradiol 0.5-1 MG Tablet 1 tablet Orally Once a day Discontinued Semaglutide 1.8 mg/ 0.5 mL 1.8 mg/ 0.5 mL Solution Auto- injector 0.5 mL Subcutaneous Once Weekly * Allergies: n o[Allergies Verified] Objective: * Vitals: W t:209lbs, Ht: 56 in, BP:122/92mm Hg, HR:90/min, BMI:46.85Index, Ht-cm: 142.24 cm, Wt-k.8 kg. * Examination: G eneral: N o current urticaria. No scleritis. No oral lesions, lungs clear. No tophi or nodules. There is no hand synovitis or deformity. Slight hypertrophy right 3rd DIP. Fists full, energy manager and pinch strength good. Other peripheral joints on comprehensive joint exam demonstrate full pain free motion without pain on motion, synovitis or deformity. No current knee effusions. Mild crepitus on RT knee motion. There are no palpable effusions. There is no metatarsal squeeze tenderness. There is reasonably full pain-free cervical spine motion for the patient's age without local tenderness. Gait is normal. Assessment: * Assessment: 1. R heumatoid arthritis of multiple sites without organ or system involvement with positive rheumatoid factor - M05.79 (Primary) 2 . F lat foot [pes planus] (acquired), left foot - M21.42 3 . F lat foot [pes planus] (acquired), right foot - M21.41 & #160; 4 . O ther assisted (current) drug therapy - Z79.899 Rheumatoid arthritis which h as been minimally symptomatic for the past few years and improved during previously is a little more symptomatic because of enforced inactivity but is back to taking a rather minimal amount of Humira which does seem to be helping. Under the circumstances I think it is fine to continue to do this. She did have some screening labs by her energy manager which were apparently unremarkable. So I will just observe on the current treatment and plan to see her back in about 9 months after the baby is born unless necessary sooner. Plan: * Treatment: * Procedure Codes: * Preventive Medicine: Screenings/Counseling: B DE ACTION PLAN Above Normal BMI Follow-up D ietary management education, guidance, and counseling * Disposition & Communication: Romain alas Attestation: The documentation for this encounter was entered by Jaylin Ceballos acting as scribe for Jarrod Godinez MD., ([facility]). The documentation recorded by the scribe accurately reflects the service I personally performed and the decisions made by me. I have reviewed and confirmed the accuracy of the documentation. By electronically signing this patient's record, I attest and assume full responsibility of all entries made into the electronic medical record by Jaylin Ceballos. * Follow Up: 9 Months, last labs from [facility] * * Sign off status: Completed Visit Status: C HK (Check Out) true * Provider: Kirstin Godinez MD Date: 0 06/22/2024 Generated for Dionna powell/Nely/Fionaitting on: 0 12/15/2024 04:54 AM EDT History and Physical Notes * [...] Slight hypertrophy right 3rd DIP. Fists full, energy manager and pinch strength good. Other peripheral joints on comprehensive joint exam demonstrate full pain free motion without pain on motion, synovitis or deformity. No current knee effusions. Mild crepitus on RT knee motion. There are no palpable effusions. There is no metatarsal squeeze tenderness. There is reasonably full pain-free cervical spine motion for the patient's age without local tenderness. Gait is normal
--- OUTSIDE RECORDS SUMMARY | 2024-12-01 11:00 | XMS_ITS | Encounter Summary ---
Author Organization [facility] Address [address] [place] [address] Care Team Providers Care Interior Design Assistant Name Role Phone Unavailable Primary Care Provider Unavailabl e Encounter Details Date Type Department Care Team (Latest Contact Info) Description 12/01/2024 11:00 AM EDT [facility] [address] [place] [address] Twyla Amos CNM [address] [place] [address] Rheumatoid arthritis flare (HCC) (Primary Dx); Encounter for supervision of other normal , third trimester ([facility]); NST (non-stress test) reactive ([facility]); Multigravida of advanced maternal age in third trimester ([facility]) Social History Tobacco Use Types Packs/Day Years Used Date Smoking Tobacco: Never Smokeless Tobacco: Never Alcohol Use Standard Drinks/Week Comments Not Currently 0 (1 standard drink = 0.6 oz pur e alcohol) Estimated Date of Delivery Comme nts Yes 12/14/2024 Based on last me nstrual period of 03/09/2024 (Exact Date) Sex and Gender Information Value Date Recorded Sex Assigned at Female 04/30/2024 7:07 AM EST Legal Sex Female 7:22 PM EDT Gender Identity Female 04/30/2024 7:07 AM EST Sexual Orientation Not on file documented as of this encounter Last Filed Vital Signs Vital Sign Reading Time Taken Comments Blood Pressure 122/80 12/01/2024 10:59 AM EDT Pulse - - Temperature - - Respiratory Rate - - Oxygen Saturation - - Inhaled Oxygen Concentration - - Weight 108 kg (237 lb) 12/01/2024 10:59 AM EDT Height - - Body Mass Index 38.25 07/23/2022 12:00 PM EDT documented in this encounter Progress Notes * Twyla Amos CNM - 12/01/2024 11:00 AM EDT Subjective No chief complaint on file. Nevin Yarbrough is a 39 y.o. at 38w1d with a working estimated date of delivery of 12/14/2024, by Last Menstrual Period who presents for a routine visit. She denies vaginal bleeding, leakage of fluid, decreased movements, or contractions. OB History Para Term AB Living 2 1 1 1 SAB IAB Ectopic Multiple Live Births 1 # Outcome Date GA Lbr Paramjit/2nd Weight Sex Type Anes PTL Lv 2 Current 1 Term 12/06/21 39w6d 01:33 / 00:51 7 lb 13.5 oz F Vag-Spont EPI N MADIE Her is complicated by: AMA, anxiety, rheumatoid arthritis Objective Physical Exam Weight: 237 lb Expected Total Weight Gain: 11 lb-19 lb Pregravid BMI: 32.13 BP: 122/80 Urine protein-negative Urine glucose-negative Assessment/Plan Diagnoses and all orders for this visit: Rheumatoid arthritis flare (HCC) Encounter for supervision of other normal , third trimester ([facility]) NST (non-stress test) reactive ([facility]) Multigravida of advanced maternal age in third trimester ([facility]) Reactive NST today Discussed with patient EIOL due to AMA and patient does not want to be induced. We discussed risks,benefits, and patient does not want to be induced Unless I have to be for a medical reason Continue vitamin. Labs reviewed GBS negative Expected mode of delivery Follow up in 1 week for a routine visit. documented in this encounter Plan of Treatment Not on file documented as of this encounter Goals Goal Patient Goal Type Associated Problems Recent Progress Patient-Stated? Author Reminders Care Plan OB Reminders No Open Scheduling, Background documented as of this encounter Visit Diagnoses Diagnosis Rheumatoid arthritis flare (HCC)- Primary Encounter for supervision of other normal , third trimester ([facility]) NST (non-stress test) reactive ([facility]) state, incidental Multigravida of advanced maternal age in third trimester ([facility]) documented in this encounter Additional Health Concerns Active Problems Noted Date Diagnosed Date OB Reminders 06/25/2024 documented as of this encounter
--- OUTSIDE RECORDS SUMMARY | 2024-12-02 11:00 | XMS_ITS | Encounter Summary ---
Author Organization [facility] Address [address] [place] [address] Care Team Providers Care Adobe Cq Developer Name Role Phone Unavailable Primary Care Provider Unavailabl e Encounter Details Date Type Department Care Team (Latest Contact Info) Description 12/02/2024 11:00 AM EDT [facility] [address] [place] [phone] Multigravida of advanced maternal age in third trimester ([facility]) Social History Tobacco Use Types Packs/Day Years [...] on file documented as of this encounter Plan of Treatment Not on file documented as of this encounter Goals Goal Patient Goal Type Associated Problems Recent Progress Patient-Stated? Author Reminders Care Plan OB Reminders No Open Scheduling, Background documented as of this encounter Procedures Procedure Name Priority Date/Time Associated Diagnosis Comments US OB FOLLOW UP TRANSABDOMINAL APPROACH Routine 12/02/2024 11:37 AM EDT Multigravida of advanced maternal age in third trimester ([facility]) documented in this encounter Results * US OB follow up transabdominal approach (12/02/2024 11:37 AM EDT) Anatomical Region Laterality Modality Body Ultrasound 12/03/2024 12:0 2 PM EDT Impressions 12/03/2024 1:02 PM EDT 1. Single, live intrauterine , current sonographic age of 37 weeks and 6 days, with an estimated date of delivery of December 17, 2024. 2. Comparison made with prior examination of November 04, 2024 delivery at that time was December 14, 2024 and prior weight 44%. * Estimated Weight (g) by Percentile is based upon an accurate estimated age based on last menstrual period. TRANSCRIBED BY: ELECTRONICALLY SIGNED BY: Edwardo Flores MD Narrative 12/03/2024 1:02 PM EDT FINDINGS: A single, live intrauterine is present with normal cardiac rate of 163 beats per minute. Normal activity and amniotic fluid volume. Amniotic fluid index is 10.0 cm. Morphology is grossly normal. The cervix is long and closed, 5.1cm. The placenta is anterior, not associated with the cervical os. The current sonographic age is 37 weeks and 6 days, based on the following measurements: BPD 9.2 cm (37 weeks, 4 days) Head Circumference 33.1cm (37 weeks,5 days) Abdominal Circumference 34.6cm ( 38 weeks, 4 days) Femur Length 7.4cm (37 weeks, 5 days) Presentation Cephalic Placenta Anterior, Grade 1. Weight (g) by Percentile 59.9 % * These measurements result in an estimated date of delivery of December 17, 2024 The current estimated weight is 3400 grams ( 7 pound, 8 ounces). Procedure Note Edwardo Flores MD - 12/03/2024 FINDINGS: A single, live intrauterine is present with normal cardiacrate of 163 beats per minute. Normal activity and amniotic fluidvolume. Amniotic fluid index is 10.0 cm. Morphology is grossly normal.The cervix is long and closed, 5.1cm. The placenta is anterior, notassociated with the cervical os. The current sonographic age is 37 weeksand 6 days, based on the following measurements: BPD 9.2 cm (37 weeks, 4 days) Head Circumference 33.1cm (37 weeks,5 days) Abdominal Circumference 34.6cm ( 38 weeks, 4 days) Femur Length 7.4cm (37 weeks, 5 days) Presentation Cephalic Placenta Anterior, Grade 1. Weight (g) by Percentile 59.9 % * These measurements result in an estimated date of delivery of 2024 The current estimated weight is 3400 grams ( 7 pound, 8ounces). IMPRESSION: 1. Single, live intrauterine , current sonographic age of 37weeks and 6 days, with an estimated date of delivery of December. 2. Comparison made with prior examination of November 04, 2024 delivery atthat time was December 14, 2024 and prior weight 44%. * Estimated Weight (g) by Percentile is based upon an accurateestimated age based on last menstrual period. TRANSCRIBED BY: ELECTRONICALLY SIGNED BY: Edwardo Flores MD us Twyla Amos CNM IMG OB US PROCEDURES Final R esult documented in this encounter Visit Diagnoses Diagnosis Multigravida of advanced maternal age in third trimester ([facility]) documented in this encounter Additional Health Concerns Active Problems Noted Date Diagnosed Date OB Reminders 06/25/2024 documented as of this encounter
--- OUTSIDE RECORDS SUMMARY | 2024-12-07 11:00 | XMS_ITS | Encounter Summary ---
Author Organization [facility] Address [address] [place] [address] Care Team Providers Care Critical Care Cns Name Role Phone Unavailable Primary Care Provider Unavailabl e Encounter Details Date Type Department Care Team (Latest Contact Info) Description 12/07/2024 11:00 AM EDT [facility] [address] [place] [address] Twyla Amos CNM [address] [place], [place] [id number] Rheumatoid arthritis flare (HCC) (Primary Dx); Encounter for supervision of other normal , third trimester ([facility]); NST (non-stress test) reactive ([facility]) Social History Tobacco Use Types Packs/Day Years [...] Sign Reading Time Taken Comments Blood Pressure 142/90 12/07/2024 11:13 AM EDT Pulse - - Temperature - - Respiratory Rate - - Oxygen Saturation - - Inhaled Oxygen Concentration - - Weight 108 kg (239 lb) 12/07/2024 11:13 AM EDT Height - - Body Mass Index 38.58 07/23/2022 12:00 PM EDT documented in this encounter Progress Notes * Twyla Amos CNM - 12/07/2024 11:00 AM EDT Subjective No chief complaint on file. Nevin Yarbrough is a 39 y.o. at 39w0d with a working estimated date of delivery [...] lb 13.5 oz F Vag-Spont EPI N MDAIE Her is complicated by: RA, AMA AMA, rheumatoid arthritis Objective Physical Exam Weight: 239 lb Expected Total Weight Gain: 11 lb-19 lb Pregravid BMI: 32.13 BP: 142/90 Urine protein-negative Urine glucose-negative Assessment/Plan Continue vitamin. Labs reviewed. GBS taken. Expected mode of delivery Follow up in [...] supervision of other normal , third trimester ([facility]) NST (non-stress test) reactive ([facility]) state, incidental documented in this encounter Additional Health Concerns Active Problems Noted Date Diagnosed Date OB Reminders 06/25/2024 documented as of this encounter
--- OUTSIDE RECORDS SUMMARY | 2024-12-10 11:00 | XMS_ITS | Encounter Summary ---
Author Organization [facility] Address [address] [place] [address] Care Team Providers Care Business Systems Manager Name Role Phone Unavailable Primary Care Provider Unavailabl e Encounter Details Date Type Department Care Team (Latest Contact Info) Description 12/10/2024 11:00 AM EDT [facility] [address] [place] [phone] Multigravida of advanced maternal age in third trimester ([facility]) Social History Tobacco Use Types Packs/Day Years [...] Name Priority Date/Time Associated Diagnosis Comments US BIOPHYSICAL PROFILE WO NON STRESS TESTING Routine 12/10/2024 11:23 AM EDT Multigravida of advanced maternal age in third trimester ([facility]) documented in this encounter Results * US biophysical profile wo non stress testing (12/10/2024 11:23 AM EDT) Anatomical Region Laterality Modality Body Ultrasound 12/12/2024 1:04 PM EDT Impressions 12/14/2024 7:55 AM EDT Anterior placenta and normal 8/8 biophysical profile. TRANSCRIBED BY: ELECTRONICALLY SIGNED BY: Edwardo Flores MD Narrative 12/14/2024 7:55 AM EDT FINDINGS: Breathing Movements 2 Gross Body Movements 2 Tone 2 Qualitative amniotic fluid volume 2 A single, viable intrauterine is present. The placenta is anterior placenta, Grade 2 not associated with the cervical os. Closed cervix 5.4 cm length. Heart rate is 158 bpm. Procedure Note Edwardo Flores MD - 12/14/2024 FINDINGS: Breathing Movements 2 Gross Body Movements 2 Tone 2 Qualitative amniotic fluid volume 2 A single, viable intrauterine is present. The placenta isanterior placenta, Grade 2 not associated with the cervical os. Closedcervix 5.4 cm length. Heart rate is 158 bpm. IMPRESSION: Anterior placenta and normal 8/8 biophysical profile. TRANSCRIBED BY: ELECTRONICALLY SIGNED BY: Edwardo Flores MD us Twyla Amos CNM IMG OB US PROCEDURES Final R esult documented in this encounter Visit Diagnoses Diagnosis Multigravida of advanced maternal age in third trimester ([facility]) documented in this encounter Additional Health Concerns Active Problems Noted Date Diagnosed Date OB Reminders 06/25/2024 documented as of this encounter
--- OUTSIDE RECORDS SUMMARY | 2024-12-14 11:30 | XMS_ITS | Encounter Summary ---
Author Organization [facility] Address [address] [place] [address] Care Team Providers Care Hogshead Roller Name Role Phone Unavailable Primary Care Provider Unavailabl e Encounter Details Date Type Department Care Team (Latest Contact Info) Description 12/14/2024 11:30 AM EDT Routine [facility] [address] [place] [address] Twyla Amos CNM [address] [place], [place] [id number] Rheumatoid arthritis flare (HCC) (Primary Dx); NST (non-stress test) reactive ([facility]); Encounter for supervision of other normal , third trimester ([facility]) Social History Tobacco Use Types Packs/Day Years [...] Sign Reading Time Taken Comments Blood Pressure - - Pulse - - Temperature - - Respiratory Rate - - Oxygen Saturation - - Inhaled Oxygen Concentration - - Weight 108 kg (238 lb) 12/14/2024 11:22 AM EDT Height - - Body Mass Index 38.41 07/23/2022 12:00 PM EDT documented in this encounter Progress Notes * Twyla Amos CNM - 12/14/2024 11:30 AM EDT Subjective No chief complaint on file. Nevin Yarbrough is a 39 y.o. at 40w0d with a working estimated date of delivery [...] N MADIE Her is complicated by: AMA, Rheumatoid arthritis Objective Physical Exam Weight: 238 lb Expected Total Weight Gain: 11 lb-19 lb Pregravid BMI: 32.13 Urine protein-negative Urine glucose-negative Assessment/Plan Continue vitamin. Labs reviewed. GBS taken. Expected mode of delivery vaginal Follow up in 1 week for a routine visit. documented in this encounter Plan of Treatment Not on file documented as of this encounter Goals Goal Patient Goal Type Associated Problems Recent Progress Patient-Stated? Author Reminders Care Plan OB Reminders No Open Scheduling, Background documented as of this encounter Visit Diagnoses Diagnosis Rheumatoid arthritis flare (HCC)- Primary NST (non-stress test) reactive ([facility]) state, incidental Encounter for supervision of other normal , third trimester ([facility]) documented in this encounter Additional Health Concerns Active Problems Noted Date Diagnosed Date OB Reminders 06/25/2024 documented as of this encounter
[2024-12-15] VITALS (57 sets, daily range): BP systolic 85–164; BP diastolic 50–104; PULSE 66–104; TEMP 36.5–36.6
--- OUTSIDE RECORDS SUMMARY | 2024-12-15 04:54 | XMS_ITS | Encounter Summary ---
Author Organization [facility] Address [address] [place] [address] Care Team Providers Care Pantry Goods Worker Name Role Phone Unavailable Primary Care Provider Unavailabl e Encounter Details Date Type Department Care Team (Latest Contact Info) Description 12/10/2024 Travel Social History Tobacco Use Types Packs/Day Years [...] documented as of this encounter Visit Diagnoses Not on filedocumented in this encounter Additional Health Concerns Active Problems Noted Date Diagnosed Date OB Reminders 06/25/2024 documented as of this encounter
--- OUTSIDE RECORDS SUMMARY | 2024-12-15 04:54 | XMS_ITS | Clinical Summary ---
Author Organization [facility] Address [address] [place] [address] Care Team Providers Care Planning Intern Name Role Phone Unavailable Primary Care Provider Unavailabl e Allergies No known active allergies Medications Adalimumab 40 MG/0.4ML Auto-injector Kit Active albuterol 0.63 MG/3ML nebulizer solution Inhale 1 ampule every 6 (six) hours if needed Active fluticasone (Flonase Allergy Relief) 50 MCG/ACT nasal spray Flonase Allergy Relief Active montelukast (Singulair) 10 MG tablet Take by mouth Active Doxylamine Succinate, Sleep, (UNISOM PO) 07/08/2024 Active famotidine (Pepcid) 20 MG tablet Take 20 mg by mouth Daily as needed Active Encounters Date Type Department Care Team Description 12/14/2024 11:30 AM EDT Routine [facility] [address] [place] [address] Twyla Amos CNM Rheumatoid arthritis flare (HCC) (Primary Dx); NST (non-stress test) reactive ([facility]); Encounter for supervision of other normal , third trimester ([facility]) 12/14/2024 Bamboo flowsheet [facility] [address] [place] [address] Twyla Amos CNM 12/14/2024 Travel 12/10/2024 11:00 AM EDT Ancillary Procedure [facility] [address] [place] [address] Multigravida of advanced maternal age in third trimester ([facility]) 12/10/2024 Travel 12/07/2024 11:00 AM EDT Routine [facility] [address] [place] [address] Twyla Amos, SHAHNAZ Rheumatoid arthritis flare (HCC) (Primary Dx); Encounter for supervision of other normal , third trimester ([facility]); NST (non-stress test) reactive ([facility]) 12/07/2024 Bamboo flowsheet [facility] [address] [place] [address] Twyla Amos CNM 12/03/2024 Travel 12/02/2024 11:00 AM EDT Ancillary Procedure [facility] [address] [place] [address] Multigravida of advanced maternal age in third trimester ([facility]) 12/02/2024 Travel 12/01/2024 11:00 AM EDT Routine [facility] [address] [place] [address] Twyla Amos, SHAHNAZ Rheumatoid arthritis flare (HCC) (Primary Dx); Encounter for supervision of other normal , third trimester ([facility]); NST (non-stress test) reactive ([facility]); Multigravida of advanced maternal age in third trimester ([facility]) 12/01/2024 Bamboo flowsheet [facility] [address] [place] [address] Twyla Amos, CNM 11/26/2024 11:00 AM EDT Ancillary Procedure [facility] [address] [place] [address] Multigravida of advanced maternal age in third trimester ([facility]) 11/26/2024 Travel 11/23/2024 11:00 AM EDT Routine [facility] [address] [place] [address] Twyla Amos CNM Rheumatoid arthritis flare (HCC) (Primary Dx); Encounter for supervision of other normal , third trimester ([facility]); NST (non-stress test) reactive ([facility]) 11/23/2024 Bamboo flowsheet [facility] [address] [place] [address] Twyla Amos CNM 11/18/2024 11:00 AM EDT Ancillary Procedure [facility] [address] [place] [address] Multigravida of advanced maternal age in third trimester ([facility]) 11/18/2024 Travel 11/17/2024 3:30 PM EDT Routine [facility] [address] [place] [address] Twyla Amos CNM screening for streptococcus B ([facility]) 11/17/2024 motionBEAT incboo flowsheet [facility] [address] [place] [address] Twyla Amos CNM 11/16/2024 Travel 11/12/2024 9:15 AM EDT Ancillary Procedure [facility] [address] [place] [address] Multigravida of advanced maternal age in third trimester ([facility]) 11/12/2024 Travel 11/11/2024 Travel 11/09/2024 10:30 AM EDT Routine [facility] [address] [place] [address] Twyla Amos CNM Encounter for supervision of other normal , third trimester ([facility]) (Primary Dx); NST (non-stress test) reactive ([facility]); Rheumatoid arthritis flare (HCC); Multigravida of advanced maternal age in third trimester ([facility]) 11/09/2024 Bamboo flowsheet [facility] [address] [facility] [address] Twyla Amos CNM 11/05/2024 Travel 11/04/2024 10:30 AM EDT Ancillary Procedure [facility] [address] [facility] [address] [place] [address] Multigravida of advanced maternal age in third trimester ([facility]) 11/04/2024 Travel 11/03/2024 11:00 AM EDT Routine [facility] [address] [facility] [address] Twyla Amos CNM Multigravida of advanced maternal age in third trimester ([facility]) (Primary Dx); Encounter for supervision of other normal , third trimester ([facility]); NST (non-stress test) reactive ([facility]); Rheumatoid arthritis involving multiple sites with positive rheumatoid factor (HCC) 11/03/2024 Results Follow-Up [facility] [address] [place] [address] Twyla Amos CNM US biophysical profile wo non stress testing, US OB follow up transabdominal approach, US biophysical profile wo non stress testing, Additional followed-up results: 3 11/02/2024 Travel 10/29/2024 11:45 AM EDT Ancillary Procedure [facility] [address] [facility] [address] [facility] [address] Multigravida of advanced maternal age in third trimester ([facility]) 10/29/2024 Travel 10/26/2024 11:15 AM EDT Routine [facility] [address] [place] [address] Twyla Amos CNM Multigravida of advanced maternal age in third trimester ([facility]) (Primary Dx); Encounter for supervision of other normal , third trimester ([facility]); Rheumatoid arthritis flare (HCC); NST (non-stress test) reactive ([facility]) 10/26/2024 Bamboo flowsheet [facility] [address] [place] [address] Twyla Amos CNM 10/25/2024 Travel 10/20/2024 11:00 AM EDT [facility] [address] [place] [address] Twyla Amos CNM Encounter for supervision of other normal , third trimester ([facility]) (Primary Dx); Multigravida of advanced maternal age in third trimester ([facility]); Rheumatoid arthritis flare (HCC) 10/20/2024 Bamboo flowsheet [facility] [address] [place] [address] Twyla Amos CNM 10/07/2024 10:30 AM EDT Ancillary Procedure [facility] [address] [address] related condition in third trimester ([facility]) 10/07/2024 Travel 09/30/2024 Travel 09/24/2024 Results Follow-Up [facility] [address] [place] [address] Cayla Sierra MA GLUCOSE, GESTATIONAL SCREEN (50G)-135 CUTOFF, CBC, US OB follow up transabdominal approach 09/23/2024 9:30 AM EDT [facility] [address] [place] [address] Twyla Amos CNM Rheumatoid arthritis flare (HCC) (Primary Dx); Screening for diabetes mellitus (DM); Screening for iron deficiency anemia; related condition in third trimester ([facility]) 09/23/2024 Bamboo flowsheet [facility] [address] [place] [address] Twyla Amos CNM 09/22/2024 Travel from Last 3 Months Family History Medical History Relation Name Comments Hypertension Mother Rheum arthritis Mother Relation Name Status Comments Father Alive Mother Alive Social History Tobacco Use Types Packs/Day Years Used Date Smoking Tobacco: Never Smokeless Tobacco: Never Tobacco Cessation:Counseling Given: Not Answered Alcohol Use Standard Drinks/Week Comments Not Currently [...] AM EST Sexual Orientation Not on file Last Filed Vital Signs Vital Sign Reading Time Taken Comments Blood Pressure 142/90 12/07/2024 11:13 AM EDT Pulse - - Temperature - - Respiratory Rate - - Oxygen Saturation - - Inhaled Oxygen Concentration - - Weight 108 kg (238 lb) 12/14/2024 11:22 AM EDT Height 167.6 cm (5' 6 ) 07/23/2022 12:00 PM EDT Body Mass Index 38.41 07/23/2022 12:00 PM EDT Plan of Treatment Health Maintenance Due Date Last Done Comments Pap Smear 10/21/2008 Cervical Cancer Screening 10/21/2017 HPV/Cotest 10/21/2017 Influenza Vaccine Completed 11/25/2024, , 01/17/2023, Additional history exists Goals Goal Patient Goal Type Associated Problems Recent Progress Patient-Stated? Author Reminders Care Plan OB Reminders No Open Scheduling, Background Procedures Procedure Name Priority Date/Time Associated Diagnosis Comments US BIOPHYSICAL PROFILE WO NON STRESS TESTING Routine 12/10/2024 11:23 AM EDT Multigravida of advanced maternal age in third trimester ([facility]) US OB FOLLOW UP TRANSABDOMINAL APPROACH Routine 12/02/2024 11:37 AM EDT Multigravida of advanced maternal age in third trimester ([facility]) US BIOPHYSICAL PROFILE WO NON STRESS TESTING Routine 11/26/2024 11:27 AM EDT Multigravida of advanced maternal age in third trimester ([facility]) US BIOPHYSICAL PROFILE WO NON STRESS TESTING Routine 11/18/2024 11:21 AM EDT Multigravida of advanced maternal age in third trimester ([facility]) STREPTOCCOUS, GROUP B CULTURE Routine 11/17/2024 4:33 PM EDT screening for streptococcus B ([facility]) US BIOPHYSICAL PROFILE WO NON STRESS TESTING Routine 11/12/2024 9:35 AM EDT Multigravida of advanced maternal age in third trimester ([facility]) US OB FOLLOW UP TRANSABDOMINAL APPROACH Routine 11/04/2024 10:52 AM EDT Multigravida of advanced maternal age in third trimester ([facility]) US BIOPHYSICAL PROFILE WO NON STRESS TESTING Routine 10/29/2024 11:59 AM EDT Multigravida of advanced maternal age in third trimester ([facility]) US OB FOLLOW UP TRANSABDOMINAL APPROACH Routine 10/07/2024 11:02 AM EDT related condition in third trimester ([facility]) CBC Routine 09/23/2024 10:32 AM EDT Screening for iron deficiency anemia GLUCOSE, GESTATIONAL SCREEN (50G)-135 CUTOFF Routine 09/23/2024 10:32 AM EDT Screening for diabetes mellitus (DM) from Last 3 Months Results * US biophysical profile wo non stress testing (12/10/2024 11:23 AM EDT) Only the most recent of5 resultswithin the time period is included. Anatomical Region Laterality Modality Body Ultrasound 12/12/2024 1:04 PM EDT Impressions 12/14/2024 7:55 AM EDT Anterior placenta and normal 11/19 biophysical profile. TRANSCRIBED BY: ELECTRONICALLY SIGNED BY: [...] IMG OB US PROCEDURES Final R esult * US OB follow up transabdominal approach (12/02/2024 11:37 AM EDT) Only the most recent of3 resultswithin the time period is included. Anatomical Region Laterality Modality Body Ultrasound 12/03/2024 [...] SIGNED BY: Edwardo Flores MD us Twyla ESPARZA IMG OB US PROCEDURES Final R esult * STREPTOCCOUS, GROUP B CULTURE (11/17/2024 4:33 PM EDT) MICRO NUMBER [id number] [facility] SPECIMEN QUALITY Adequate [facility] SOURCE VAGINAL/ANOR ECTAL [facility] STATUS FINAL [facility] RESULT SEE NOTE [facility] Comment: No group B Streptococcus isolated COMMENT SEE NOTE [facility] Comment: Note per CDC guidelines optimal recovery is achieved by swabbing both the lower vagina and rectum (through the anal sphincter). 11/17/2024 4:33 PM EDT 11/17/2024 4:35 PM EDT Narrative Resulting Agency Comment Performing Organization Information Site ID: QPT Name: [facility] Address: [address] [place] [address], [address] [place] [phone] Director: John Daugherty MD Twyla ESPARZA LAB BODY FLUIDS AND STOOLS O RDERABLES Final Result Performing Organization Address [facility] Co de Phone Number [facility] * GLUCOSE, GESTATIONAL SCREEN (50G)-135 CUTOFF (09/23/2024 10:32 AM EDT) Pathologist [facility] [place] GLUCOSE, GESTATIONAL SCREEN (50G)-135 CUTOFF 100 <135 mg/dL [facility] 09/23/2024 10:3 2 AM EDT 09/23/2024 10:32 AM EDT Narrative Resulting Agency Comment Performing Organization Information Site ID: QPT Name: [facility] Address: [address] [place] [address], [address] [place] [phone] Director: John Daugherty MD Twyla ESPARZA LAB BLOOD ORDERABLES Final R esult Performing Organization Address [facility] de Phone Number [facility] * CBC (09/23/2024 10:32 AM EDT) WHITE BLOOD CELL COUNT 7.4 3.8 - 10.8 Thousand/u L [facility] RED BLOOD CELL COUNT 3.87 3.80 - 5.10 Million/uL [facility] HEMOGLOBIN 12.2 11.7 - 15.5 g/dL [facility] HEMATOCRIT 37.8 35.0 - 45.0 % [facility] MCV 97.7 80.0 - 100.0 fL [facility] MCH 31.5 27.0 - 33.0 pg [facility] MCHC 32.3 32.0 - 36.0 g/dL [facility] Comment: For adults, a slight decrease in the calculated MCHC value (in the range of 30 to 32 g/dL) is most likely not clinically significant; however, it should be interpreted with caution in correlation with other red cell parameters and the patient's clinical condition. RDW 12.6 11.0 - 15.0 % [facility] PLATELET COUNT 217 140 - 400 Thousand/u L [facility] MPV 10.5 7.5 - 12.5 fL [facility] Blood Venous blood specimen / Unknown 09/23/2024 10:32 AM EDT 09/23/2024 10:32 AM EDT Narrative Resulting Agency Comment Performing Organization Information Site ID: QPT Name: [facility] Address: [address] [facility] [place] [address] Director: John Daugherty MD us Twyla Amos CNM LAB BLOOD ORDERABLES Final R esult [facility] from Last 3 Months Additional Health Concerns Active Problems Noted Date Diagnosed Date OB Reminders 06/25/2024 Insurance [employer]
--- OUTSIDE RECORDS SUMMARY | 2024-12-15 04:55 | XMS_ITS | Encounter Summary ---
Author Organization [facility] Address [address] [place] [address] Care Team Providers Care Forge Operator Name Role Phone Unavailable Primary Care Provider Unavailabl e Encounter Details Date Type Department Care Team (Latest Contact Info) Description 11/03/2024 Results Follow-Up [facility] [address] [place] [phone] Twyla Amos, VILMA [address] [place], [place] [phone] US biophysical profile wo non stress testing, US OB follow up transabdominal approach, US biophysical profile wo non stress testing, Additional followed-up results: 3 Social History Tobacco Use Types Packs/Day Years [...]
--- OUTSIDE RECORDS SUMMARY | 2024-12-15 04:55 | XMS_ITS | Encounter Summary ---
Author Organization [facility] Address [address] [place] [address] Care Team Providers Care Lining Strap Closer Name Role Phone Unavailable Primary Care Provider Unavailabl e Encounter Details Date Type Department Care Team (Latest Contact Info) Description 12/14/2024 Travel Social History Tobacco Use Types Packs/Day [...]
--- OUTSIDE RECORDS SUMMARY | 2024-12-15 04:55 | XMS_ITS | Encounter Summary ---
Author Organization [facility] Address [address] [place] [address] Care Team Providers Care Sieve Repairer Name Role Phone Unavailable Primary Care Provider Unavailabl e Encounter Details Date Type Department Care Team (Latest Contact Info) Description 12/02/2024 Travel Social History Tobacco Use Types Packs/Day [...]
--- OUTSIDE RECORDS SUMMARY | 2024-12-15 04:55 | XMS_ITS | Encounter Summary ---
Author Organization [facility] Address [address] [place] [address] Care Team Providers Care Chemical Compounder Helper Name Role Phone Unavailable Primary Care Provider Unavailabl e Encounter Details Date Type Department Care Team (Late st Contact Info) Description 12/01/2024 Bamboo flowsheet [facility] [address] [place] [phone] Twyla Amos, CN [address] [place], [place] [phone] Social History Tobacco Use Types Packs/Day Years [...]
--- OUTSIDE RECORDS SUMMARY | 2024-12-15 04:55 | XMS_ITS | Encounter Summary ---
Author Organization [facility] Address [address] [place] [address] Care Team Providers Care Dough Machine Operator Name Role Phone Unavailable Primary Care Provider Unavailabl e Encounter Details Date Type Department Care Team (Late st Contact Info) Description 12/07/2024 Bamboo flowsheet [facility] [address] [place] [phone] Twyla Amos, VILMA [address] [place], [place] [phone] Social History Tobacco Use Types Packs/Day Years [...]
--- OUTSIDE RECORDS SUMMARY | 2024-12-15 04:55 | XMS_ITS | Encounter Summary ---
Author Organization [facility] Address [address] [place] [address] Care Team Providers Care Refining Still Operator Name Role Phone Unavailable Primary Care Provider Unavailabl e Encounter Details Date Type Department Care Team (Late st Contact Info) Description 12/14/2024 Bamboo flowsheet [facility] [address] [place] [address] Twyla Amos, CN [address] [place], [place] [phone] Social History Tobacco Use Types Packs/Day Years [...]
--- OUTSIDE RECORDS SUMMARY | 2024-12-15 04:55 | XMS_ITS | Patient Health Record ---
Author Organization [facility] [place] Address [address] [place] [address] Care Team Providers Care Podiatrist Assistant Name Role Phone Tristen Clemens MD Primary Care Provider Jarrod Tee Unavailable [phone] Allergies No Known Allergies Reason For Referral No Information Medications Medication SIG (Take, Route, Frequency, Duration) [...] Question Answer Notes Patient is a nonsmoker Alcohol Screen (Audit-C) Question Answer Notes Did you have a drink containing alcohol in the p ast year? 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[employer], 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[employer], 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[employer], 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[employer], 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[employer], 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 Problems Problem Type SNOMED Code ICD Code Onset Dates Problem Status W/U Status Risk Notes Problem [id number] Rheumatoid arthritis of multiple sites without organ or system involvement with positive rheumatoid factor (M05.79) Active confirmed Vital Signs Heart Rate 90 /min 06/22/2024 Blood pressure diastolic 92 mm Hg 06/22/2024 Height 56 in 06/22/2024 Blood pressure systolic 122 mm Hg 06/22/2024 Weight 209 lbs 06/22/2024 BMI 46.85 kg/m2 06/22/2024 Encounters Encounter Location Date Provider Diagnosis [id number] [facility] [address] [place], [place] [id number] 02/18/2024 Jarrod Godinez [facility] Rheumatology [address] [place] [address] 06/22/2024 Jarrod Mcgrawberger Rheumatoid arthritis of multiple sites without organ or system involvement with positive rheumatoid factor M05.79 ; Flat foot [pes planus] (acquired), left foot M21.42 ; Flat foot [pes planus] (acquired), right foot M21.41 and Other skilled nursing (current) drug therapy Z79.899 Assessments Encounter Date [...] did have some screening labs by her sugar refinery supervisor which were apparently unremarkable. So I will [...] did have some screening labs by her sugar refinery supervisor which were apparently unremarkable. So I will [...] did have some screening labs by her sugar refinery supervisor which were apparently unremarkable. So I will just observe on the current treatment and plan to see her back in about 9 months after the baby is born unless necessary sooner. 06/22/2024 Other skilled nursing (current) drug therapy (ICD-10 - Z79.899) Rheumatoid [...] did have some screening labs by her sugar refinery supervisor which were apparently unremarkable. So I will just observe on the current treatment and plan to see her back in about 9 months after the baby is born unless necessary sooner. Plan Of Treatment Pending Test Test Name Order Date CMP (COMPLETE METABOLIC PANEL) UA (URINALYSIS, COMPLETE) 06/05/2020 CULTURE, URINE w SENSITIVITY 06/05/2020 LIPID PANEL (CHOL/TRIG/HDL/LDL) 06/05/19 21 CBC WITH DIFF 06/05/2020 TSH 06/05/2020 Next Appt Details Provider Name:Jarrod colin, 03/29/2025 08:45:00 AM, [address] [place], [place], [address], Insurance Providers Payer Name Payer Address Payer Phone Subscriber Number Group Number Insured Name Patient Relationship to Insured Coverage Start Date Coverage End Date MMO [address] [place], [place] [id number] Parker Yarbrough Spouse - patient is the spouse of the insured 0 [employer] [id number] [place] [id number] Nevin Yarbrough Self - patient is the insured [facility] [address] [place], [place] [id number] Nevin Yarbrough Self - patient is the insured 8 9 Medical (General) History Medical History History ICD Code A recent examination by a copy center associate Surgical History Surgery Date(Month/Year) History of periodontal surgery History of tonsillectomy
--- OUTSIDE RECORDS SUMMARY | 2024-12-15 04:55 | XMS_ITS | Encounter Summary ---
Author Organization [facility] Address [address] [place] [address] Care Team Providers Care Linen Checker Name Role Phone Unavailable Primary Care Provider Unavailabl e Encounter Details Date Type Department Care Team (Latest Contact Info) Description 12/03/2024 Travel Social History Tobacco Use Types Packs/Day [...]
--- OUTSIDE RECORDS SUMMARY | 2024-12-15 04:56 | XMS_ITS | Clinical Summary ---
Author Organization [facility] Address [address] [place] [address] Care Team Providers Care Data Keyer Name Role Phone Sarath TYSON MD, Jeffrey B Primary Care Provider [phone] Allergies No known active allergies Medications aspirin 81 MG chewable tablet Take 81 mg by mouth in the morning. Active fluticasone (VERAMYST) 27.5 MCG/SPRAY nasal spray 2 sprays by Each Nostril route daily Active famotidine (PEPCID) 20 MG tablet Take 20 mg by mouth in the morning. Active acetaminophen (TYLENOL) 325 MG tablet Take 650 mg by mouth every 6 hours as needed for Pain Active ibuprofen (ADVIL;MOTRIN) 800 MG tablet Take 1 tablet by mouth in the morning and 1 tablet at noon and 1 tablet in the evening. 120 tablet 3 2 Active adalimumab (HUMIRA) 40 MG/0.8ML injection Inject 40 mg into the skin once 11/29/19 22 Discontinu ed(Stop Taking at Discharge) Active Problems Problem Noted Date Diagnosed Date Term 12/06/2021 39 weeks gestation of 12/05/2021 Kidney stone 11/27/2021 Family History Medical History Relation Name Comments Diabetes Maternal Grandfather Heart Disease Maternal Grandmother High Blood Pressure Mother Cancer Paternal Grandmother Relation Name Status Comments Maternal Grandfather Maternal Grandmother Mother Paternal Grandmother Social History Tobacco Use Types Packs/Day Years Used Date Smoking Tobacco: Never Smokeless Tobacco: Never Tobacco Cessation:Counseling Given: Not Answered Alcohol Use Standard Drinks/Week Comments Not Currently 0 (1 standard drink = 0.6 oz pur e alcohol) AUDIT-C Answer Date Recorded Q1: How often do you have a drink containing alcohol? Never 12/05/2021 Q2: How many drinks containi ng alcohol do you have on a typical day when you are drinking? Patient does not drink Q3: How often do you have si x or more drinks on one occasion? Never 12/05/2021 Overall Financial Resource Strain (CARDIA) Answe r Date Recorded How hard is it for you to pa y for the very basics like food, housing, medical care, and heating? Not hard at all 12/05/2021 Hunger Vital Sign Answer Date Recorded Within the past 12 months, y ou worried that your food would run out before you got the money to buy more. Never true 12/06/19 22 Within the past 12 months, t he food you bought just didn't last and you didn't have money to get more. Never true 12/05/2021 [place] Depression Scale Answer Date Recorded Last EPDS Total Score Not on file 12/07/2021 The thought of harming myself has occurred to me . Never 12/07/2021 Comments No Sex and Gender Information Value Date Recorded Sex Assigned at Not on file Legal Sex Female 12:24 PM EDT Gender Identity Not on file Sexual Orientation Not on file Last Filed Vital Signs Vital Sign Reading Time Taken Comments Blood Pressure 138/90 12/07/2021 4:10 PM EDT Pulse 91 12/07/2021 4:10 PM EDT Temperature 37.2 C (98.9 F) 12/07/2021 4:10 PM EDT Respiratory Rate 18 12/07/2021 4:10 PM EDT Oxygen Saturation 100% 12/06/2021 12:30 PM EDT Inhaled Oxygen Concentration - - Weight 104.3 kg (230 lb) 12/05/2021 2:27 PM EDT Height 167.6 cm (5' 6 ) 12/05/2021 2:27 PM EDT Body Mass Index 37.12 12/05/2021 2:27 PM EDT Plan of Treatment Health Maintenance Due Date Last Done Comments Depression Screen 1999 Varicella vaccine (1 of 2 - 13+ 2-dose series) 10/21/2000 Hepatitis C screen 10/21/2005 DTaP/Tdap/Td vaccine (1 - Tdap) 10/21/2006 Hepatitis B vaccine (1 of 3 - 19+ 3-dose series) 10/21/2006 Pap smear 10/21/2008 Cervical cancer screen 10/21/2017 HPV (without or with Pap) 10/21/2017 COVID-19 Vaccine ( - 2023-2 5 season) 2023 Flu vaccine (#1) 11/12/2024 HIV screen Completed 04/30/2021 HPV vaccine (No Doses Required) Completed Hepatitis A vaccine Aged Out No longe r eligible based on patient's age to complete this topic Hib vaccine Aged Out No longer eligi ble based on patient's age to complete this topic Meningococcal (ACWY) vaccine Aged Out No longer eligible based on patient's age to complete this topic Meningococcal B vaccine Aged Out No l onger eligible based on patient's age to complete this topic Pneumococcal 0-49 years Vaccine Aged Out No longer eligible based on patient's age to complete this topic Polio vaccine Aged Out No longer elig ible based on patient's age to complete this topic Procedures Procedure Name Priority Date/Time Associated Diagnosis Comments HIV, EXTERNAL RESULT Routine 04/30/2021 from Last 3 Months or Most Recently Relevant to Health Maintenance Results * HIV, External Result (04/30/2021) HIV, External Result negative EXTERNAL LAB Twyla Amos PEST MANAGEMENT SUPERVISOR - CNM IMMUNOLOGY ORDERABLES F inal Result EXTERNAL LAB from Last 3 Months or Most Recently Relevant to Health Maintenance Insurance [employer] Advance Directives * Full Code (Latest Code Status on File) Date Activated Date Inactivated Comments 12/06/2021 3:54 PM 12/07/2021 8:20 PM * Full Code Date Activated Date Inactivated Comments 12/05/2021 3:07 PM 12/06/2021 3:54 PM Care Teams Data Keyer Relationship Specialty Start [place] [id number] [address] PCP - General Family Medicine 11/27/21
--- OUTSIDE RECORDS SUMMARY | 2024-12-15 04:56 | XMS_ITS | Encounter Summary ---
Author Organization [facility] Address [address] [address] Care Team Providers Care Vice President Payment Name Role Phone Unavailable Primary Care Provider Unavailabl e Encounter Details Date Type Department Care Team (Latest Contact Info) Description 09/24/2024 Results Follow-Up [facility] [address] [place] [id number] Cayla Sierra MA GLUCOSE, GESTATIONAL SCREEN ([id number] CUTOFF, CBC, US OB follow up transabdominal approach Social History Tobacco Use Types Packs/Day Years [...]
--- OUTSIDE RECORDS SUMMARY | 2024-12-15 04:56 | XMS_ITS | Clinical Summary ---
Author Organization [facility] Address [id number] [address] [place] [address] Care Team Providers Care Staff Toxicologist Name Role Phone Sarath TYSON MD, Jeffrey B Primary Care Provider [phone] Allergies No known active allergies Medications albuterol (ACCUNEB) 0.63 mg/3 mL nebulizer solution Inhale 1 ampule by nebulization every 6 (six) hours as needed for wheezing. Active adalimumab (HUMIRA) 40 mg/0.8 mL injection Inject 40 mg under the skin once. Active 25/iron fum/folic/dha (-1 ORAL) Take by mouth. Activ e fluticasone propionate (FLONASE) 50 mcg/actuation nasal spray Administer 1 spray into each nostril daily. Active doxylamine (UNISOM) 25 mg tablet Take 1 tablet (25 mg total) by mouth nightly as needed for sleep. 30 tablet 12 2 Active famotidine (PEPCID) 20 mg tablet Take 20 mg by mouth daily as needed for heartburn. Active Active Problems No known active problems Family History Medical History Relation Name Comments Diabetes Maternal Grandfather Breast cancer Paternal Grandmother Relation Name Status Comments Maternal Grandfather Paternal Grandmother Social History Tobacco Use Types Packs/Day Years Used Date Smoking Tobacco: Never Smokeless Tobacco: Never Alcohol Use Standard Drinks/Week Comments Not Currently 0 (1 standard drink = 0.6 oz pur e alcohol) Childcare Answer Date Recorded Childcare Unknown 09/22/2018 Employment Answer Date Recorded Employment Unknown 09/22/2018 Purpose - Life Answer Date Recorded Purpose and direction in life Unknown Comments No Sex and Gender Information Value Date Recorded Sex Assigned at Female 07/17/2021 12:31 PM EDT Legal Sex Female 8:50 PM EDT Gender Identity Female 07/17/2021 12:31 PM EDT Sexual Orientation Not on file Last Filed Vital Signs Vital Sign Reading Time Taken Comments Blood Pressure 134/84 10/30/2021 9:55 AM EDT Pulse 88 10/30/2021 9:55 AM EDT Temperature - - Respiratory Rate - - Oxygen Saturation - - Inhaled Oxygen Concentration - - Weight 103.9 kg (229 lb) 01/22/2023 12:18 PM EDT Height 167.6 cm (5' 6 ) 10/30/2021 9:55 AM EDT Body Mass Index 36.96 10/30/2021 9:55 AM EDT Plan of Treatment Health Maintenance Due Date Last Done Comments Depression Screening 1999 Tobacco Screening 1999 Pap Smear 10/21/2008 Adult BMI Screening 01/23/2024 01/22/2023 Influenza Vaccine 12/13/2024 01/27/2024, , 06/02/2022, Additional history exists DTaP,Tdap and Td Vaccines (8 - Td or Tdap) 09/28/2031 09/27/2021, 06/05/2017, 12/03/1993, Additional history exists COVID-19 Vaccine Completed 01/27/2024, 11/2021, 07/18/2021, Additional history exists Medical Devices Not on file Insurance [employer] Care Teams Staff Toxicologist Relationship Specialty Start Date End Date Tristen Clemens II, MD [address] [place] [address] PCP - General 12/17/13
--- OUTSIDE RECORDS SUMMARY | 2024-12-15 04:56 | XMS_ITS | Patient Health Record ---
Author Organization [facility] Address [address] [place] [address] Care Team Providers Care Water Supply Engineer Name Role Phone Dr. Tristen Clemens Primary Care Provider Unavail able Virgie Solorzano Unavailable [phone] Tarah Little Unavailable [phone] Zully Clemente Unavailable [phone] Allergies No Known Allergies Results Component Value Reference Range Notes 2San SpeedySwab Rapid COVID & Flu A/B Combo Self- At HomeTest, Reviewed date:05/26/2024 09:21:20 AM Interpretation:Positive Performing Lab: Notes/Report: Positive Flu A positive Flu B negative COVID negative Reason For Referral No Information Medications Medication SIG (Take, Route, Frequency, Duration) Notes Start Date End Date Status Amoxicillin-Pot Clavulanate 875-125 MG 1 tab(s) orally every 12 hours; Duration: 7 day(s) 08/31/2024 Active Montelukast Sodium 10 MG 1 tablet Orally Once a day 05/12/2023 Active Albuterol Sulfate Ac tive Adalimumab-aacf (2 Syringe) 40 MG/0.8ML as directed Subcutaneous Active Flonase Allergy Relief Active Claritin 10 MG 1 tablet Orally Once a day Active Immunizations Vaccine Route Administration Date Status Comme nts Flublok, 9yr & older, PFS (0.5mL Admin) IM Intramuscular 11/25/2024 Administered PFIZER Covid 19 3rd Dose (0.3ml) 12yr & up IM Intramuscular 12/05/2020 Administered PFIZER Covid 19 BOOSTER (0.3ml) 12yr & up IM Intramuscular 07/18/2021 Administered PPD Aplisol ID Intradermal 07/05/2020 Administered RSV: Abrysvo IM Intramuscular 11/16/2024 Administered TDAP: BOOSTRIX IM Intramuscular 11/25/2024 Administered [id number] Quad PFS (0.5mL Admin) 18 y/o & older IM Intramuscular 03/13/2021 Administered z2022 Fluzone Quad PFS (0.5mL Admin) 6 months & older Unknown 06/02/2022 Administered z2023 FluBLOK, 18 y/o & Older, Quad PDF (0.5mL Admin) IM Intramuscular 01/17/2023 Administered z2024 Flublok, 18yo & older, PFS (0.5mL Admin) IM Intramuscular 01/27/2024 Administered zPfizer Covid19 Comirnaty (12yr and up) Mclean (0.3mL) IM Intramuscular 01/27/2024 Administered Social History Tobacco Use: Social History Observation Description Date Details (start date - stop date) Never Smoker NA - NA Alcohol Misuse/Abuse (Audit C): Question Answer Notes Did you have a drink contain ing alcohol in the past year? Yes How often did you have a drink containing alcoho l? Monthly or less (1 point) How many drinks did you have on a typical occasi on? 1 or 2 (0 points) How often did you have six o r more drinks on one occasion? Never (0 points) Points: 1 Interpretation: Negative Tobacco Use Question Answer Notes Are you a Never smoker Problems Problem Type SNOMED Code ICD Code Onset Dates Problem Status W/U Status Risk Notes Problem Body mass index 30.00 to 34.99 (68544067085514 7) Adult BMI 31.0-31.9 kg/sq m (Z68.31) Inactive confirmed Problem Bacterial sinusitis (846017012) Bacterial sinusitis (J32.9) Active confirmed Problem Obese class I (74056157869356 7) BMI 33.0-33.9,adult (Z68.33) Inactive confirmed Problem Acute maxillary sinusitis (48282032) Acute non-recurrent maxillary sinusitis (J01.00) Active confirmed Problem Autoimmune disease (22073301) Autoimmune disease (M35.9) Active confirmed Problem Exercise induced bronchospasm (749036310) Exercise induced bronchospasm (J45.990) Active confirmed Problem depression (54592734) 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) Inactive confirmed Problem Seasonal allergy (384169808) Seasonal allergies (J30.2) Active confirmed Problem Obesity (738039131) Obesity (BMI 30-39.9) (E66.9) Active confirmed Problem Rheumatoid arthritis (33469748) Rheumatoid arthritis (M06.9) Active confirmed Problem Immunosuppressio n due to drug therapy (D84.821) Active confirmed Problem Rheumatoid arthritis (18115471) Rheumatoid arthritis of multiple sites without organ or system involvement with positive rheumatoid factor (M05.79) 09/01/19 25 Active confirmed Problem History of urinary stone (846705420) History of renal calculi (Z87.442) Active confirmed Vital Signs Respiratory Rate 18 /min 08/31/2024 Height 66 in 08/31/2024 Weight 213 lbs 08/31/2024 BMI 34.38 kg/m2 08/31/2024 Encounters Encounter Location Date Provider Diagnosis [id number] [address] 01/27/2024 Virgie Hunterrefe Encounter for immunization Z23 [id number] [facility] [address] [place] [address] 03/30/2024 Virgie Hogrefe Acute recurrent pansinusitis J01.41 [id number] [facility] [address] [place] [address] 05/26/2024 Zully Bridges Influenza A J10.1 ; 11 weeks gestation of Z3A.11 ; Rheumatoid arthritis of multiple sites without organ or system involvement with positive rheumatoid factor M05.79 ; Immunosuppression due to drug therapy D84.821 ; Exercise induced bronchospasm J45.990 ; Seasonal allergies J30.2 and , incidental Z33.[id number] [address] 08/31/2024 Tarah Little Acute sinusitis with symptoms > 10 days J01.90 and , incidental Z33.[address] [address] 11/16/2024 Virgie Hogrefe Encounter for immunization Z23 and 36 weeks gestation of Z3A.[id number] [address] 11/25/2024 Virgie Hogrefe Encounter for immunization Z23 and 37 weeks gestation of Z3A.37 Assessments Encounter Date Diagnosis (ICD Code) Assessment Notes Treatment Notes Treatment Clinical Notes Section Notes 01/27/2024 Encounter for immunization (ICD-10 - Z23) Seasonal Covid Vaccine Seasonal Influenza Vaccine VIS given and discussed, no concerns voiced; Pt instructed to stay in the clinic area for 15-30 minutes after the injection. VIS given and discussed, no concerns voiced; Flu vaccine administered. Pt instructed to stay in the clinic area for 20 minutes after the injection. Return PRN, ER if adverse reaction occurs. See scanned Vaccine Administration Consent Form 03/30/2024 Acute recurrent pansinusitis (ICD-10 - J01.41) 05/26/2024 Influenza A (ICD-10 - J10.1) Influenza (Flu): Care Instructions material was published 05/26/2024 11 weeks gestation of (ICD-10 - Z3A.11) Weeks 10 to 14 of Your : Care Instructions material was published, Learning About When to Call Your Doctor During (Up to 20 Weeks) material was published 08/31/2024 Acute sinusitis with symptoms > 10 days (ICD-10 - J01.90) Complete the entire course of antibiotics as prescribed, even when symptoms have improved, to prevent a relapse of infection and the development of antibiotic resistance., Acute Sinusitis: Care Instructions material was published 08/31/2024 , incidental (ICD-10 - Z33.1) The patient acknowledges and agrees that information about this visit will be provided to their OB/ Railroad Yard Worker of record. Thank you for choosing [facility]. Just as a reminder; your care with us here today is for your current illness only and is not meant to be considered as a replacement for any of your regular visits with an OUTSIDE UPHOLSTERER provider. Please follow up with us as needed for your current illness. Continue to follow up with an OUTSIDE UPHOLSTERER for your regular visits and all -relate d complaints 11/16/2024 Encounter for immunization (ICD-10 - Z23) Medical Necessity: : patient is See scanned Vaccine Administration Consent Form VIS given and discussed, no concerns voiced; Pt instructed to stay in the clinic area for 20 minutes after the injection. Medical necessity for the vaccine must be documented in: 1. Assessment section- in the Notes next to the Z23 code 11/16/2024 36 weeks gestation of (ICD-10 - Z3A.36) 11/25/2024 Encounter for immunization (ICD-10 - Z23) Medical Necessity: Seasonal Influenza Vaccine : patient is VIS given and discussed, no concerns voiced; Flu vaccine administered. Pt instructed to stay in the clinic area for 20 minutes after the injection. See scanned Vaccine Administration Consent Form VIS given and discussed, no concerns voiced; Pt instructed to stay in the clinic area for 20 minutes after the injection. Medical necessity for the vaccine must be documented in: 1. Assessment section- in the Notes next to the Z23 code 11/25/2024 37 weeks gestation of (ICD-10 - Z3A.37) 05/26/2024 Rheumatoid arthritis of multiple sites without organ or system involvement with positive rheumatoid factor (ICD-10 - M05.79) 05/26/2024 Immunosuppression due to drug therapy (ICD-10 - D84.821) 05/26/2024 Exercise induced bronchospasm (ICD-10 - J45.990) Asthma in Adults: Care Instructions material was published 05/26/2024 Seasonal allergies (ICD-10 - J30.2) 05/26/2024 , incidental (ICD-10 - Z33.1) The patient acknowledges and agrees that information about this visit will be provided to their OB/ Railroad Yard Worker of record. Thank you for choosing [facility]. Just as a reminder; your care with us here today is for your current illness only and is not meant to be considered as a replacement for any of your regular visits with an OUTSIDE UPHOLSTERER provider. Please follow up with us as needed for your current illness. Continue to follow up with an OUTSIDE UPHOLSTERER for your regular visits and all -relate d complaints 05/26/2024 Other This visit was conducted via [employer]. Please understand that the care that was provided during today's virtual visit was based upon the information you have provided. Due to the limitation of virtual care a comprehensive physical examination could not be performed. If you experience any worsening of your condition we recommend that you seek an in person evaluation with your nearest [facility], [facility], or Emergency Room, Oseltamivir material was published 08/31/2024 Other This visit was conducted via [employer]. Please understand that the care that was provided during today's virtual visit was based upon the information you have provided. Due to the limitation of virtual care a comprehensive physical examination could not be performed. If you experience any worsening of your condition we recommend that you seek an in person evaluation with your nearest [facility], Immediate Care Center, or Emergency Room, Amoxicillin and Clavulanic Acid material was published Plan Of Treatment No Information Insurance Providers Payer Name Payer Address Payer Phone Subscriber Number Group Number Insured Name Patient Relationship to Insured Coverage Start Date Coverage End Date [facility] [address] [place] [address] [id number] Nevin Yarbrough Self - patient is the insured Medical (General) History Medical History History ICD Code Autoimmune disease M35.9 Exercise induced bronchospasm J45.990 Post depression F53.0 Rheumatoid arthritis M06.9 Immunosuppression due to drug therapy D8 4.821 History of renal calculi Z87.442 25 weeks Surgical History Surgery Date(Month/Year) wisdom teeth tonsillectomy Hospitalization History Reason Date(Month/Year)
--- OUTSIDE RECORDS SUMMARY | 2024-12-15 04:56 | XMS_ITS | Encounter Summary ---
Author Organization [facility] Address [address], [address] [place] [address] Care Team Providers Care Mitering Machine Operator Name Role Phone Sarath TYSON MD, Jeffrey B Primary Care Provider [phone] Encounter Details Date Type Department Care Team (Late st Contact Info) Description 12/11/2021 [facility] Delivery [address] [place], [place] [phone] Isis Hernandez, IBCLC OB Unit at [address] [place] [id number] Social History Tobacco Use Types Packs/Day Years [...] money to get more. Never true 12/05/2021 [place] Depression Scale Answer Date Recorded Last EPDS Total Score Not on file 12/07/2021 The thought of harming myself has occurred to me . Never 12/07/2021 Comments No Sex and Gender Information Value Date Recorded Sex Assigned at Not on file Legal Sex Female 12:24 PM EDT Gender Identity Not on file Sexual Orientation Not on file COVID-19 Exposure Response Date Recorded In the last 10 days, have yo u been in contact with someone who was confirmed or suspected to have Coronavirus/COVID-19? No / Unsure 12/05/2021 2:41 PM EDT documented as of this encounter Plan of Treatment Not on file documented as of this encounter Visit Diagnoses Not on filedocumented in this encounter Care Teams Mitering Machine Operator Relationship Specialty Start [place] [address] [place] [address] PCP - General Family Medicine 11/27/21 documented as of this encounter
--- OUTSIDE RECORDS SUMMARY | 2024-12-15 04:56 | XMS_ITS | Encounter Summary ---
Author Organization [facility] Address [address] [place] [address] Care Team Providers Care Electrical Lineman Name Role Phone Unavailable Primary Care Provider Unavailabl e Encounter Details Date Type Department Care Team (Late st Contact Info) Description 08/02/2024 Results Follow-Up [facility] OBGYN [address] [place] [id number] Twyla Amos, VILMA [address] [place], [place] [id number] Urine culture Social History Tobacco Use Types Packs/Day Years [...]
[2024-12-15] MEDS: OXYTOCIN/0.9 % SODIUM CHLORIDE 10 UNITS/500 ML PLAST..BAG 6 UNIT IV (05:44)
[2024-12-15 06:06] LABS: Hematocrit 37.2 % (36.0-48.0); Hemoglobin 12.9 g/dL (12.0-16.0); Mean Corpuscular HGB Conc 34.7 g/dL (29.9-35.2); Mean Corpuscular Hemoglobin 31.9 pg (26.7-34.0); Mean Corpuscular Volume 92.1 fL (81.0-99.0); Platelet Count 223 10^3/uL (150-450); Red Blood Count 4.04 10^6/uL (4.20-5.40); White Blood Count 7.7 10^3/uL (4.0-11.0)
[2024-12-15 06:16] LABS: Cannabinoid Screen Urine NEGATIVE (NEGATIVE); Methamphetamines Screen Urine NEGATIVE (NEGATIVE); Tricyclic Antidepressant Urine NEGATIVE (NEGATIVE)
--- NOTE | 2024-12-15 08:59 | P.OBHP_ITS ---
OB - H&P: HPI History of Present Illness Chief complaint: INDUCTION : 2 Para: 1 Gestational age based on last menstrual period: 40.1 Indications for induction: other (elective ) History of Present Dating criteria: LMP confirmed by 1st trimester US care: good care Ultrasounds: normal 1st trimester US and normal mid trimester US complications: other (RA and did well throughout . Received Humira ) Medical complications OB: other (RA ) Labs Blood type: O (+) positive Rubella: immune RPR/VDLR: nonreactive GBS status: negative HBsAG: negative Review of Systems ROS Psychiatric: Reports: anxiety [facility] Medical History (Updated 12/15/24 @ 09:07 by JOSÉ SINGH APRN, SHAHNAZ) Seasonal allergic rhinitis ?J30.2 - Other seasonal allergic rhinitis (ICD-10) Rheumatoid arthritis ?M06.9 - Rheumatoid arthritis, unspecified (ICD-10) History of asthma ?Z87.09 - Personal history of other diseases of the respiratory system (ICD- 10) Surgical History (Updated 12/15/24 @ 06:29 by Paula Ivy) [place] teeth removed ?K08.409 - Partial loss of teeth, unspecified cause, unspecified class (ICD- 10) History of tonsillectomy and adenoidectomy ?Z90.89 - Acquired absence of other organs (ICD-10) Social History Highest level of school completed/degree received: Master's degree Little interest or pleasure in doing things: not at all Feeling down, depressed, or hopeless: not at all Meds Home Medications and Allergies Home Medications ?Medication ?Instructions ?Recorded ?Confirmed ?Type montelukast 10 mg tablet mg allergies 12/15/24 Histo ry Allergies Allergy/AdvReac Type Severity Reaction Status Date / Time No Known Drug Allergies Allergy Verified 12/15/24 04:54 Exam Constitutional Vital Signs, click to edit/add: Last Vital Signs Temp 97.8 F 12/15/24 08:34 Pulse 80 12/15/24 08:33 Resp 16 12/15/24 05:45 BP 128/81 12/15/24 08:33 O2 Del Method Room Air 12/15/24 05:45 Documenting provider has reviewed patient's vital signs: yes Common normals: no apparent distress and oriented x3 General appearance: cooperative, comfortable, well kempt, well developed and anxious Orientation/consciousness: Yes awake, Yes oriented to person, Yes oriented to place and Yes oriented to time HENMT Common normals: normocephalic Eye Common normals: EOMs intact bilaterally General eye: normal appearance of both eyes Neck & C-Spine Common normals: full ROM Lymph Lymphatic: no lymphadenopathy noted Chest Common normals: inspection of chest normal Respiratory Common normals: normal respiratory effort, no retractions, no use of accessory muscles and clear to auscultation bilaterally Effort & inspection: able to speak in complete sentences Auscultation: clear to auscultation bilaterally Cardio Common normals: regular rate and regular rhythm Rate: regular rate Rhythm: regular rhythm GI Inspection: normal to inspection Auscultation: normoactive bowel sounds Palpation: soft Percussion: normal to percussion Common normals: no CVA tenderness Back & Pelvis Common normals: no CVA tenderness Thoracic spine/upper back: normal to inspection Extremity Common normals: normal to inspection and full ROM Neuro Common normals: oriented x3 Sensorium/orientation: awake, alert, oriented to person, oriented to place and oriented to time Psych Common normals: mental status grossly normal, thought process normal, cooperative, affect normal, speech normal, activity/motor behavior normal, denies hallucinations, denies homicidal ideation and denies suicidal ideation Attitude: calm Activity/motor behavior: appropriate eye contact Speech: normal speech Thought content: normal thought content Results Labs Labs: Short CBC 12/15/24 Range/Units 05:25 WBC 7.7 (4.0-11.0) 10^3/uL Hgb 12.9 (12.0-16.0) g/dL Hct 37.2 (36.0-48.0) % Plt Count 223 (150-450) 10^3/uL OB - A/P Assessment and Plan (1) Term :
--- NOTE | 2024-12-15 09:08 | PM.EN ---
Event Note Event Note: bedside US done per this CNM to assess presentation. baby is vertex- head down
--- NOTE | 2024-12-15 13:12 | PM.EN ---
Event Note Event Note: to room, patient getting back into bed after ambulating and sitting on the ball., EFM started and category 1 tracing. SVE 2-3/70/-3. Sterile amnihook used and AROM performed with blood tinged fluid. Small amount, blood tinged, odorless fluid. FHT's stable before, during and after ROM. patient tolerated procedure well and does desire epidural. RN to start fluid bolus and call anesthesia.
[2024-12-15] MEDS: ROPIVACAINE HCL/PF 400 MG/200 ML PREMIX 6 MG EPIDURAL (13:51)
[2024-12-15] MEDS: OXYTOCIN/0.9 % SODIUM CHLORIDE 10 UNITS/500 ML PLAST..BAG 42 UNIT IV (18:44)
[2024-12-15] MEDS: OXYTOCIN/0.9 % SODIUM CHLORIDE 20 UNITS/1,000 ML PLAST..BAG 125 UNIT IV (19:42)
--- NOTE | 2024-12-15 20:09 | PM.OBPRCVD ---
Procedure Procedure: normal spontaneous vaginal delivery Intrapartal events: None Induction method: per pitocin protocol Delivery augmentation: rupture of membranes Delivery monitor: external FHT and external uterine Route of delivery: Episiotomy Description: none L&D Laceration Description: perineal - 1st degree Delivery repair: Vicryl Estimated blood loss (mL): 150 Anesthesia type: Epidural Disposition: same day Infant Gender: female presentation: vertex Placental delivery description: Spontaneous cord description: 3 Vessels heart rate - 1 minute: 100 bpm or Greater respiratory effort - 1 minute: Spontaneous/Strong Cry muscle tone - 1 minute: Active Movement reflex response - 1 minute: Prompt Response color - 1 minute: Bluish Hands or Feet total score - 1 minute: 9 heart rate - 5 minute: 100 bpm or Greater respiratory effort - 5 minute: Spontaneous/Strong Cry muscle tone - 5 minute: Active Movement reflex response - 5 minute: Prompt Response color - 5 minute: Bluish Hands or Feet total score - 5 minute: 9
[2024-12-15] MEDS: ACETAMINOPHEN 500 MG TABLET 1000 MG PO (20:29)
[2024-12-15] MEDS: IBUPROFEN 400 MG TABLET 800 MG PO (22:10)
--- NOTE | 2024-12-15 23:13 | PC.NURSE ---
patient bending arm, nursing .
--- NOTE | 2024-12-15 23:14 | PC.NURSE ---
patient bending arm, nursing
[2024-12-16] VITALS (10 sets, daily range): BP systolic 128–152; BP diastolic 76–97; PULSE 60–86; TEMP 36.4–37
[2024-12-16] MEDS: ACETAMINOPHEN 325 MG TABLET 650 MG PO (03:42)
[2024-12-16 05:51] LABS: Hematocrit 35.3 % (36.0-48.0); Hemoglobin 11.9 g/dL (12.0-16.0); Immature Granulocytes Abs Auto 0.05 10^3/uL (0.00-0.03); Immature Granulocytes Pct Auto 0.4 % (0.0-0.5); Lymphocytes Absolute Auto 1.9 10^3/uL (1.2-3.8); Mean Corpuscular HGB Conc 33.7 g/dL (29.9-35.2); Mean Corpuscular Hemoglobin 31.6 pg (26.7-34.0); Mean Corpuscular Volume 93.9 fL (81.0-99.0); Platelet Count 191 10^3/uL (150-450); Red Blood Count 3.76 10^6/uL (4.20-5.40); White Blood Count 12.3 10^3/uL (4.0-11.0)
[2024-12-16] MEDS: BENZOCAINE/MENTHOL 85 GRAM SPRAY BOTTLE 1 APPLIC TOPICAL (07:13)
[2024-12-16] MEDS: GLYCERIN/WITCH HAZEL PADS 1 PAD TOPICAL (07:14)
[2024-12-16] MEDS: IBUPROFEN 400 MG TABLET 800 MG PO ×3 (07:18→23:49)
[2024-12-16] MEDS: DOCUSATE SODIUM 100 MG CAPSULE PO ×2 (08:33→19:38)
--- NOTE | 2024-12-16 09:32 | PM.OBPN ---
OB - PN: Subj Subjective Patient comments: no complaints [place] status: doing well feeding status: exclusively Exam Constitutional Vital Signs, click to edit/add: Last Vital Signs Temp 97.9 F 12/16/24 07:41 Pulse 76 12/16/24 07:41 Resp 16 12/16/24 07:50 BP 128/87 12/16/24 07:41 O2 Del Method Room Air 12/16/24 07:50 Documenting provider has reviewed patient's vital signs: yes Common normals: no apparent distress, average body habitus and oriented x3 Exam limitations: altered mental status General appearance: cooperative, comfortable and well kempt Orientation/consciousness: Yes awake, Yes oriented to person, Yes oriented to place and Yes oriented to time HENMT Common normals: normocephalic Eye Common normals: EOMs intact bilaterally General eye: normal appearance of both eyes Neck & C-Spine Common normals: full ROM and no lymphadenopathy General: normal visual inspection Lymph Lymphatic: no lymphadenopathy noted Chest Common normals: inspection of chest normal Respiratory Common normals: normal respiratory effort, no retractions, no use of accessory muscles and clear to auscultation bilaterally Effort & inspection: able to speak in complete sentences Auscultation: clear to auscultation bilaterally Cardio Common normals: regular rate and regular rhythm Rate: regular rate Rhythm: regular rhythm GI Common normals: Normal to inspection, nondistended, normoactive bowel sounds present Inspection: normal to inspection Auscultation: normoactive bowel sounds Palpation: soft Percussion: normal to percussion Common normals: no CVA tenderness Back & Pelvis Common normals: no CVA tenderness Thoracic spine/upper back: normal to inspection Lumbar spine/lower back: normal to inspection Extremity Common normals: normal to inspection General: normal exam except as noted Neuro Common normals: oriented x3 Sensorium/orientation: awake, alert, oriented to person, oriented to place and oriented to time Psych Common normals: mental status grossly normal, thought process normal, cooperative, affect normal, speech normal, activity/motor behavior normal, denies hallucinations, denies homicidal ideation and denies suicidal ideation Attitude: calm Speech: normal speech Results Labs Labs: Short CBC 12/16/24 Range/Units 05:42 WBC 12.3 H (4.0-11.0) 10^3/uL Hgb 11.9 L (12.0-16.0) g/dL Hct 35.3 L (36.0-48.0) % Plt Count 191 (150-450) 10^3/uL OB - PN: A/P Assessment and Plan (1) Term : Plan - Vaginal Delivery day: 1 Plan: discharge home Time Spent with Patient Time: Total time spent is greater than 50% in coordination of care (as documented) at patient's floor/unit and/or counseling patient: Total time spent with greater than 50% in coordination of care (as documented) at patient's floor/unit and/or counseling patient: less than 15 minutes
[2024-12-16] MEDS: ACETAMINOPHEN 500 MG TABLET 1000 MG PO ×2 (12:54→19:37)
[2024-12-16] MEDS: LABETALOL HCL 100 MG TABLET PO (18:45)
[2024-12-16 18:47] LABS: Hematocrit 35.9 % (36.0-48.0); Hemoglobin 12.1 g/dL (12.0-16.0); Immature Granulocytes Abs Auto 0.04 10^3/uL (0.00-0.03); Immature Granulocytes Pct Auto 0.4 % (0.0-0.5); Lymphocytes Absolute Auto 2.4 10^3/uL (1.2-3.8); Mean Corpuscular HGB Conc 33.7 g/dL (29.9-35.2); Mean Corpuscular Hemoglobin 31.8 pg (26.7-34.0); Mean Corpuscular Volume 94.5 fL (81.0-99.0); Platelet Count 210 10^3/uL (150-450); Red Blood Count 3.80 10^6/uL (4.20-5.40); White Blood Count 9.5 10^3/uL (4.0-11.0)
[2024-12-16 19:00] LABS: Uric Acid 3.8 mg/dL (2.6-6.0)
[2024-12-16 19:03] LABS: Partial Thromboplastin Time 28.5 sec (22.3-36.2); Prothrombin Time 9.8 sec (9.0-11.6)
[2024-12-16 19:05] LABS: Alanine Aminotransferase 25 U/L (14-59); Albumin Globulin Ratio 0.6; Albumin Level 2.3 g/dL (3.4-5.0); Alkaline Phosphatase 104 U/L (46-116); Anion Gap 12.2; Aspartate Amino Transferase 26 U/L (15-37); Blood Urea Nitrogen 7.0 mg/dL (7.0-18.0); Calcium 8.4 mg/dL (8.5-10.1); Carbon Dioxide 25.8 mmol/L (21.0-32.0); Chloride 106 mmol/L (98-107); Estimated GFR (African America >60 (>=60 mL/min/1.73m^2); Estimated GFR (Non-African Ame >60 (>=60 mL/min/1.73m^2); Globulin 4.0 g/dL; Glucose 98 mg/dL (74-106); INR <0.93; Potassium 4.0 mmol/L (3.5-5.1); Sodium 140 mmol/L (136-145); Total Protein 6.3 g/dL (6.4-8.2)
[2024-12-16 19:06] LABS: Fibrinogen 415 mg/dL (200-400)
[2024-12-17 06:58] VITALS: BP 130/82; PULSE 76
[2024-12-17] MEDS: ACETAMINOPHEN 500 MG TABLET 1000 MG PO (06:58)
[2024-12-17] MEDS: LABETALOL HCL 100 MG TABLET PO ×2 (06:58→08:30)
--- NOTE | 2024-12-17 07:42 | P.OBPN_ITS ---
OB - PN: Subj Subjective Patient comments: no complaints and pain well controlled [place] status: doing well Exam Constitutional Vital Signs, click to edit/add: Last Vital Signs Temp 97.5 F L 12/16/24 23:44 Pulse 76 12/17/24 06:58 Resp 16 12/16/24 23:44 BP 130/82 12/17/24 06:58 O2 Del Method Room Air 12/16/24 23:44 Documenting provider has reviewed patient's vital signs: yes Common normals: no apparent distress Respiratory Common normals: normal respiratory effort and clear to auscultation bilaterally Cardio Common normals: regular rate and regular rhythm GI Common normals: Normal to inspection, nondistended, normoactive bowel sounds present Extremity Common normals: no clubbing, cyanosis or edema and no calf tenderness Results Labs Labs: Short CBC 12/16/24 Range/Units 18:40 WBC 9.5 (4.0-11.0) 10^3/uL Hgb 12.1 (12.0-16.0) g/dL Hct 35.9 L (36.0-48.0) % Plt Count 210 (150-450) 10^3/uL BMP 12/16/24 18:40 Sodium 140 Potassium 4.0 Chloride 106 Carbon Dioxide 25.8 BUN 7.0 Creatinine 0.66 Glucose 98 Calcium 8.4 L Liver Function 12/16/24 Range/Units 18:40 Total Bilirubin 0.2 (0.2-1.0) mg/dL AST 26 (15-37) U/L ALT 25 (14-59) U/L Alkaline Phosphatase 104 (46-116) U/L Albumin 2.3 L (3.4-5.0) g/dL OB - PN: A/P Assessment and Plan (1) Term : (2) hypertension: Assessment and Plan: cont labetalol 200mg po bid, dc home, fu 1wk, precautions given Plan - Vaginal Delivery day: 2 Time Spent with Patient Time: Total time spent is greater than 50% in coordination of care (as documented) at patient's floor/unit and/or counseling patient: Total time spent with greater than 50% in coordination of care (as documented) at patient's floor/unit and/or counseling patient: less than 15 minutes
[2024-12-17 08:19] VITALS: BP 123/75; PULSE 74
[2024-12-17 08:20] VITALS: TEMP 37
[2024-12-17] MEDS: DOCUSATE SODIUM 100 MG CAPSULE PO (08:30)
[2024-12-17] MEDS: IBUPROFEN 400 MG TABLET 800 MG PO (08:30)
== END 2024-12-17 11:20 | disposition home or self-care (01) | DRG 807 ==
PROVIDERS: Admitting Provider Midwife; Family Provider Family Medicine; PCP Family Medicine; Visit Provider Midwife
DX: O99.892 Other specified diseases and conditions complicating childbirth (principal); Z37.0 Single live birth; M06.9 Rheumatoid arthritis, unspecified; O70.0 First degree perineal laceration during delivery; Z3A.40 40 weeks gestation of pregnancy; O16.5 Unspecified maternal hypertension, complicating the puerperium; Z87.440 Personal history of urinary (tract) infections
CPT/HCPCS: 36415; 51702; 59050; 59410; 80053; 80307; 83615; 84550; 85025; 85027; 85384; 85610; 85730; 86850; 86900; 86901; J0665; J2405; J2795